=== PATIENT | male | born 1975 | race Caucasian/White ===

== ENCOUNTER 2022-02-08 03:52 | Observation (INO) | payer BC ==
[2022-02-08] MEDS ORDERED: METOPROLOL TARTRATE 5 MG/5 ML INJ IV ONE (04:29)
[2022-02-08 04:42] LABS: Absolute Lymphocytes (CBC) 3.7 K/uL (0.7-4.9); Hematocrit 41.7 % (39.6-49.0); MCV 83.9 fL (80-100); MPV 7.1 fL (7.6-11.3); RBC Red Blood Cell Count 4.97 M/uL (4.33-5.43)
[2022-02-08 05:03] LABS: Potassium 3.5 mmol/L (3.5-5.1); Troponin High Sensitivity 32.6 pg/mL (<58.9)
[2022-02-08] MEDS ORDERED: METOPROLOL TAR 50 MG TAB ONE (05:33)
[2022-02-08] MEDS ORDERED: ENOXAPARIN 100 MG/ML SYR SQ ONE (05:33)
[2022-02-08] MEDS ORDERED: ENOXAPARIN 60 MG/0.6 ML SQ ONE (05:34)
--- NOTE | 2022-02-08 07:30 | EDPHYS ---
Physician Documentation [facility] Name: Neville Mitchell Age: 47 yrs Sex: Male : 1975 Arrival Date: 02/08/2022 Time: 03:53 Bed 8 Private MD: ED Physician Marc Hardy HPI: 02/08 05:08 This 47 yrs old Male presents to ER via Ambulatory with complaints of Breathing kdr Difficulty. 05:08 The patient has shortness of breath at rest, with light activity. Onset: The kdr symptoms/episode began/occurred suddenly, yesterday. Duration: The symptoms are continuous, and are unchanged since they started. The patient's shortness of breath is aggravated by exertion, light activity, walking, is alleviated by nothing. Associated signs and symptoms: Pertinent positives:. Severity of symptoms: At their worst the symptoms were mild moderate just prior to arrival, in the emergency department the symptoms are unchanged. The patient has not experienced similar symptoms in the past. The patient has not recently seen a physician. Historical: - Allergies: 04:14 No Known Allergies; bb - Home Meds: 04:14 suboxone [Active]; phentermine oral [Active]; bb - PMHx: 04:14 pulmonary embolisim; bb - PSHx: 04:14 R ACL repair; bb - Immunization history:: Client reports having NOT received the Covid vaccine. - Social history:: Smoking status: Patient denies any tobacco usage or history of. ROS: 05:08 Constitutional: Negative for fever, chills, and weight loss, Eyes: Negative for injury, kdr pain, redness, and discharge, ENT: Negative for injury, pain, and discharge, Neck: Negative for injury, pain, and swelling, Abdomen/GI: Negative for abdominal pain, nausea, vomiting, diarrhea, and constipation, Back: Negative for injury and pain, : Negative for injury, bleeding, discharge, and swelling, MS/Extremity: Negative for injury and deformity, Skin: Negative for injury, rash, and discoloration, Neuro: Negative for headache, weakness, numbness, tingling, and seizure activity. Psych: Negative for depression, anxiety, suicide ideation, homicidal ideation, and hallucinations, Allergy/Immunology: Negative for hives, rash, and allergies, Endocrine: Negative for neck swelling, polydipsia, polyuria, polyphagia, and marked weight changes, Hematologic/Lymphatic: Negative for swollen nodes, abnormal bleeding, and unusual bruising. 05:08 Cardiovascular: Positive for chest pain, palpitations, Negative for edema, paroxysmal nocturnal dyspnea. Exam: 05:08 Constitutional: This is a well developed, well nourished patient who is awake, alert, kdr and in no acute distress. Head/Face: Normocephalic, atraumatic. Eyes: Pupils equal round and reactive to light, extra-ocular motions intact. Lids and lashes normal. Conjunctiva and sclera are non-icteric and not injected. Cornea within normal limits. Periorbital areas with no swelling, redness, or edema. Neck: Trachea midline, no thyromegaly or masses palpated, and no cervical lymphadenopathy. Supple, full range of motion without nuchal rigidity, or vertebral point tenderness. No Meningismus. Chest/axilla: Normal chest wall appearance and motion. Nontender with no deformity. No lesions are appreciated. Respiratory: Lungs have equal breath sounds bilaterally, clear to auscultation and percussion. No rales, rhonchi or wheezes noted. No increased work of breathing, no retractions or nasal flaring. Abdomen/GI: Soft, non-tender, with normal bowel sounds. No distension or tympany. No guarding or rebound. No evidence of tenderness throughout. Back: No spinal tenderness. No costovertebral tenderness. Full range of motion. Skin: Warm, dry with normal turgor. Normal color with no rashes, no lesions, and no evidence of cellulitis. MS/ Extremity: Pulses equal, no cyanosis. Neurovascular intact. Full, normal range of motion. Neuro: Awake and alert, GCS 15, oriented to person, place, time, and situation. Cranial nerves II-XII grossly intact. Motor strength 5/5 in all extremities. Sensory grossly intact. Cerebellar exam normal. Normal gait. Psych: Awake, alert, with orientation to person, place and time. Behavior, mood, and affect are within normal limits. 05:08 Cardiovascular: Rate: tachycardic, Rhythm: irregularly irregular, Pulses: no pulse deficits are appreciated, Heart sounds: normal, Edema: is not appreciated. Vital Signs: 04:00 BP 161 / 125; Pulse 138; Resp 20 S; Temp 98.5(O); Pulse Ox 94% on R/A; Weight 149.69 kg bb (R); Height 5 ft. 10 in. (177.80 cm) (R); Pain 0/10; 04:27 BP 180 / 102; Pulse 139; Resp 18 S; Pulse Ox 94% on 2 lpm NC; aa9 04:30 BP 180 / 102; Pulse 132; Resp 20; Pulse Ox 97% 2 lpm ; Pain 0/10; as6 04:35 BP 149 / 110; Pulse 121; Resp 16 S; Pulse Ox 94% on 2 lpm NC; aa9 04:44 BP 127 / 99; Pulse 115; Resp 23 S; Pulse Ox 94% on 2 lpm NC; aa9 05:12 BP 128 / 106; Pulse 107; Resp 23 S; Pulse Ox 95% on 2 lpm NC; as6 06:40 BP 126 / 91; Pulse 91; Resp 14 S; Pulse Ox 95% on 2 lpm NC; as6 07:24 BP 127 / 99; Pulse 105; Resp 20 S; Temp 98.2(O); Pulse Ox 95% on 2 lpm NC; Pain 0/10; aa5 09:55 Pulse 117; Resp 18; Pulse Ox 95% on 2 lpm NC; ss 10:10 BP 139 / 99; Pulse 125; Resp 18 S; Pulse Ox 95% on 2 lpm NC; aa5 11:21 BP 152 / 99; Pulse 96; Resp 18; Pulse Ox 94% on 2 lpm NC; ss 12:30 BP 160 / 101; Pulse 112; Resp 18 S; Pulse Ox 95% on 2 lpm NC; aa5 04:00 Body Mass Index 47.35 (149.69 kg, 177.80 cm) MDM: 05:08 Data reviewed: vital signs, nurses notes, lab test result(s), EKG, radiologic studies. kdr Counseling: I had a detailed discussion with the patient and/or guardian regarding: the historical points, exam findings, and any diagnostic results supporting the discharge/admit diagnosis, lab results, radiology results. 07:29 Patient medically screened. kdr 02/08 04:03 Order name: Basic Metabolic Panel; Complete Time: 05:07 kdr 02/08 04:03 Order name: CBC with Diff; Complete Time: 05:07 kdr 02/08 04:03 Order name: Troponin HS; Complete Time: 05:07 kdr 02/08 04:03 Order name: XRAY Chest (1 view) kdr 02/08 04:18 Order name: COVID-19 SARS RT PCR (Document "Date of Onset" if Symptomatic); Complete bb Time: 07:15 02/08 04:31 Order name: D-Dimer; Complete Time: 05:07 kdr 02/08 04:03 Order name: EKG; Complete Time: 04:04 kdr 02/08 04:03 Order name: Cardiac monitoring; Complete Time: 04:18 kdr 02/08 04:31 Order name: US Extremity Venous W Compression Darek kdr 02/08 05:07 Order name: CT Chest For PE Angio kdr 02/08 11:55 Order name: Diet Heart Healthy; Complete Time: 11:56 aa5 02/08 04:03 Order name: EKG - Nurse/Tech; Complete Time: 04:18 kdr 02/08 04:03 Order name: IV Saline Lock; Complete Time: 04:29 kdr 02/08 04:03 Order name: Labs collected and sent; Complete Time: 04:29 kdr 02/08 04:03 Order name: O2 Per Protocol; Complete Time: 04:18 kdr 02/08 04:03 Order name: O2 Sat Monitoring; Complete Time: 04:18 kdr Administered Medications: 04:27 Drug: Lopressor (metoprolol) 5 mg Route: IVP; Site: right antecubital; aa9 04:35 Drug: Lopressor (metoprolol) 5 mg Route: IVP; Site: right antecubital; aa9 04:44 Drug: Lopressor (metoprolol) 5 mg Route: IVP; Site: right antecubital; aa9 06:41 Follow up: Response: No adverse reaction as6 05:35 Drug: Lopressor (metoprolol TARTRATE) 50 mg Route: PO; aa9 06:41 Follow up: Response: No adverse reaction as6 05:35 Drug: Lovenox (enoxaparin) 1 mg/kg Route: Sub-Q; Site: right lower abdomen; aa9 06:41 Follow up: Response: No adverse reaction as6 05:35 Drug: Lovenox (enoxaparin) 1 mg/kg Route: Sub-Q; Site: right lower abdomen; aa9 Disposition Summary: 02/08/22 07:29 Hospitalization Ordered Hospitalization Status: Inpatient Admission kdr Provider: Ethan Whyte Location: Telemetry/MedSurg (Inpatient) kdr Condition: Fair kdr Problem: new kdr Symptoms: have improved kdr Bed/Room Type: Standard kdr Room Assignment: 410(02/08/22 13:03) bd Diagnosis - Unspecified atrial fibrillation - New onset kdr Forms: - Medication Reconciliation Form kdr - SBAR form kdr Signatures: Dispatcher [employer] ED[place] Noriega Kevin, MD MD kdr Ballard, Brenda, RN RN Radha Victor RN RN aa9 Roni Gordon RN as6 Corrections: (The following items were deleted from the chart) 04:17 04:14 PMHx: PE; tarsha willingham 13:03 07:29 kdr bd
--- NOTE | 2022-02-08 07:30 | ER ---
Nurse's Notes [facility] Name: Neville Mitchell Age: 47 yrs Sex: Male : 1975 Arrival Date: 02/08/2022 Time: 03:53 Bed 8 Private MD: Diagnosis: Unspecified atrial fibrillation-New onset Presentation: 02/08 04:00 Chief complaint: Patient states: he has been having difficulty breathing since bb yesterday morning states "I can't catch my breath" and c/o of chest pressure and congestion. Coronavirus screen: At this time, the client does not indicate any symptoms associated with coronavirus-19. Ebola Screen: No symptoms or risks identified at this time. Initial Sepsis Screen: Does the patient meet any 2 criteria? No. Patient's initial sepsis screen is negative. Does the patient have a suspected source of infection? No. Patient's initial sepsis screen is negative. Risk Assessment: Do you want to hurt yourself or someone else? Patient reports no desire to harm self or others. Onset of symptoms was February 07, 2022. 04:00 Method Of Arrival: Ambulatory bb 04:00 Acuity: ZHAO 2 bb Historical: - Allergies: 04:14 No Known Allergies; bb - Home Meds: 04:14 suboxone [Active]; phentermine oral [Active]; bb - PMHx: 04:14 pulmonary embolisim; bb - PSHx: 04:14 R ACL repair; bb - Immunization history:: Client reports having NOT received the Covid vaccine. - Social history:: Smoking status: Patient denies any tobacco usage or history of. Screenin:54 Abuse screen: Denies threats or abuse. Denies injuries from another. Nutritional aa9 screening: No deficits noted. Tuberculosis screening: No symptoms or risk factors identified. Fall Risk None identified. Assessment: 04:30 General: Appears uncomfortable, Behavior is calm, cooperative, anxious. Pain: Denies aa9 pain. Cardiovascular: Reports palpitations, Rhythm is atrial fibrillation with rapid ventricular response. Respiratory: Reports shortness of breath Airway is patent Respiratory effort is even, unlabored. Derm: Skin is flushed. 05:13 Reassessment: Patient appears in no apparent distress at this time. as6 06:40 Reassessment: Patient appears in no apparent distress at this time. Patient is alert, as6 oriented x 3, equal unlabored respirations, skin warm/dry/pink. 07:26 Reassessment: Patient is alert, oriented x 3, equal unlabored respirations, skin aa5 warm/dry/pink. Reassessment: Awaiting disposition. Pain: Denies pain. Cardiovascular: Rhythm is atrial fibrillation with rapid ventricular response. 08:59 Reassessment: Awaiting room assignment. ss 09:00 Reassessment: Patient and/or family updated on plan of care and expected duration. Pain aa5 level reassessed. Patient is alert, oriented x 3, equal unlabored respirations, skin warm/dry/pink. 10:25 Reassessment: Patient is alert, oriented x 3, equal unlabored respirations, skin aa5 warm/dry/pink. 10:25 Cardiovascular: Rhythm is atrial fibrillation with rapid ventricular response. aa5 10:27 Reassessment: Dr. Salomon notified of A-fib with RVR at 105-128 bpm, no further orders aa5 received. . 11:22 Reassessment: Patient appears in no apparent distress at this time. Patient and/or ss family updated on plan of care and expected duration. Pain level reassessed. Patient is alert, oriented x 3, equal unlabored respirations, skin warm/dry/pink. Awaiting room assignment. Family member remains at bedside. 11:40 Reassessment: Dr. Salomon at bedside. . aa5 13:20 Reassessment: Patient is alert, oriented x 3, equal unlabored respirations, skin aa5 warm/dry/pink. Vital Signs: 04:00 BP 161 / 125; Pulse 138; Resp 20 S; Temp 98.5(O); Pulse Ox 94% on R/A; Weight 149.69 kg bb (R); Height 5 ft. 10 in. (177.80 cm) (R); Pain 0/10; 04:27 BP 180 / 102; Pulse 139; Resp 18 S; Pulse Ox 94% on 2 lpm NC; aa9 04:30 BP 180 / 102; Pulse 132; Resp 20; Pulse Ox 97% 2 lpm ; Pain 0/10; as6 04:35 BP 149 / 110; Pulse 121; Resp 16 S; Pulse Ox 94% on 2 lpm NC; aa9 04:44 BP 127 / 99; Pulse 115; Resp 23 S; Pulse Ox 94% on 2 lpm NC; aa9 05:12 BP 128 / 106; Pulse 107; Resp 23 S; Pulse Ox 95% on 2 lpm NC; as6 06:40 BP 126 / 91; Pulse 91; Resp 14 S; Pulse Ox 95% on 2 lpm NC; as6 07:24 BP 127 / 99; Pulse 105; Resp 20 S; Temp 98.2(O); Pulse Ox 95% on 2 lpm NC; Pain 0/10; aa5 09:55 Pulse 117; Resp 18; Pulse Ox 95% on 2 lpm NC; ss 10:10 BP 139 / 99; Pulse 125; Resp 18 S; Pulse Ox 95% on 2 lpm NC; aa5 11:21 BP 152 / 99; Pulse 96; Resp 18; Pulse Ox 94% on 2 lpm NC; ss 12:30 BP 160 / 101; Pulse 112; Resp 18 S; Pulse Ox 95% on 2 lpm NC; aa5 04:00 Body Mass Index 47.35 (149.69 kg, 177.80 cm) bb ED Course: 03:53 Patient arrived in ED. bp1 03:56 Roni Gordon, GERARDO is Primary Nurse. as6 04:03 Marc Hardy MD is Attending Physician. kdr 04:14 Triage completed. bb 04:14 Arm band placed on Patient placed in an exam room, on a stretcher, on panel monitor, bb on pulse oximetry. EKG completed in triage. Results shown to MD. 04:17 XRAY Chest (1 view) In Process Unspecified. EDMS 04:29 COVID-19 SARS RT PCR (Document "Date of Onset" if Symptomatic) Sent. as6 04:29 Basic Metabolic Panel Sent. as6 04:29 CBC with Diff Sent. as6 04:30 Troponin HS Sent. as6 04:54 Patient has correct armband on for positive identification. Placed in gown. Bed in low aa9 position. Call light in reach. Side rails up X2. Adult w/ patient. Client placed on continuous cardiac and pulse oximetry monitoring. NIBP monitoring applied. 04:57 Notified ED physician of a critical lab result(s). D-Dimer 842. as6 05:07 US Extremity Venous W Compression Darek In Process Unspecified. EDMS 05:37 CT Chest For PE Angio In Process Unspecified. EDMS 07:28 Ethan Whyte MD is Hospitalizing Provider. kdr 13:20 No provider procedures requiring assistance completed. Patient admitted, IV remains in aa5 place. Administered Medications: 04:27 Drug: Lopressor (metoprolol) 5 mg Route: IVP; Site: right antecubital; aa9 04:35 Drug: Lopressor (metoprolol) 5 mg Route: IVP; Site: right antecubital; aa9 04:44 Drug: Lopressor (metoprolol) 5 mg Route: IVP; Site: right antecubital; aa9 06:41 Follow up: Response: No adverse reaction as6 05:35 Drug: Lopressor (metoprolol TARTRATE) 50 mg Route: PO; aa9 06:41 Follow up: Response: No adverse reaction as6 05:35 Drug: Lovenox (enoxaparin) 1 mg/kg Route: Sub-Q; Site: right lower abdomen; aa9 06:41 Follow up: Response: No adverse reaction as6 05:35 Drug: Lovenox (enoxaparin) 1 mg/kg Route: Sub-Q; Site: right lower abdomen; aa9 Medication: 13:20 VIS not applicable for this client. aa5 Outcome: 07:29 Decision to Hospitalize by Provider. kdr 13:20 Admitted to Tele accompanied by nurse, via wheelchair, with chart, Report called to aa5 GERARDO Mann 13:20 Condition: stable 13:20 Instructed on the need for admit, Demonstrated understanding of instructions. 13:57 Patient left the ED. ss Signatures: Dispatcher [employer] EDME Marc Hardy MD MD kdr Talia Rivas RN RN bb Angy Swift RN RN aa5 Nadine Stanley RN RN ss Diamante Izaguirre Ashby, RN RN as6 Radha Sanchez, GERARDO RN aa9 Corrections: (The following items were deleted from the chart) 04:17 04:14 PMHx: PE; tarsha willingham
[2022-02-08] MEDS ORDERED: APIXABAN 5 MG TABLET PO SCH (09:00)
--- NOTE | 2022-02-08 10:47 | RAD REPORT ---
EXAM DESCRIPTION: US - Extrem Venous W Compress Darek - 02/08/2022 5:45 am CLINICAL HISTORY: Palpitations . COMPARISON: None. TECHNIQUE: Grayscale, color Doppler, duplex Doppler, spectral Doppler images and analysis with compr ession and augmentation of right and left lower extremity veins. FINDINGS: Right and Left common femoral, greater saphenous, femoral, deep (profunda) femoral, poplit eal, posterior tibial veins unremarkable without evidence of clot. IMPRESSION: No sonographic evidence of right or left lower extremity DVT. Electronically signed by: Robbi George MD 02/08/2022 5:38 AM CDT Due to temporary technical issues with the PACS/Fluency reporting system, reports are being signed by the in house radiologist without review as a courtesy to ensure prompt reporting. The interpreting r adiologist is fully responsible for the content of the report.
--- NOTE | 2022-02-08 10:52 | RAD REPORT ---
EXAM DESCRIPTION: RAD - Chest Single View - 02/08/2022 4:15 am CLINICAL HISTORY: 47 years Male, SOB COMPARISON: None. FINDINGS: Cardiomediastinal silhouette is enlarged with diffuse bilateral parenchymal opacities. No pneumothorax or pleural effusion. Osseous structures are unremarkable. IMPRESSION: Findings are suspicious for edema versus pneumonia. Electronically signed by: Fred Roa MD 02/08/2022 4:52 AM CDT Due to temporary technical issues with the PACS/Fluency reporting system, reports are being signed by the in house radiologist without review as a courtesy to ensure prompt reporting. The interpreting r adiologist is fully responsible for the content of the report.
--- NOTE | 2022-02-08 12:19 | P.HP ---
Certification for Inpatient Patient admitted to: Inpatient With expected LOS: >2 Midnights Practitioner: I am a practitioner with admitting privileges, knowledge of patient current condition, hospital course, and medical plan of care. Services: Services provided to patient in accordance with Admission requirements found in Title 42 Section 412.3 of the Code of Federal Regulations Patient History Date of Service: 02/08/22 Reason for admission: Atrial fibrillation History of Present Illness: 47-year-old morbidly obese gentleman with a past medical history of hypertension, remote history of lower extremity DVT presented to the emergency department with a complaint of palpitation shortness of breath of 1 week duration, symptoms became worse last night, he stated he could not catch his breath. He therefore presented to the emergency department where patient noted to be in rapid atrial fibrillation. Patient given oral metoprolol, followed by IV metoprolol with some response in the heart rate. His heart rate was in the 115-130s during my examination in the ED. CTA thorax is negative for pulmonary embolism. Venous Doppler of the lower extremities negative for DVT. Patient with no known cardiac history. He is hospitalized for further management. Allergies No Known Allergies Allergy (Unverified 02/08/22 08:51) Home Medications: Buprenorphine HCl/Naloxone HCl [Suboxone 2 mg-0.5 mg Sl Film] 1 each SL DAILY 02/08/22 Phentermine HCl [Adipex-P] 37.5 mg PO DAILY 02/08/22 - Past Medical/Surgical History Diabetic: No -: Hypertension -: History of lower extremity DVT - Family History Father -: Cancer (Lung cancer) - Social History Smoking Status: Never smoker Alcohol use: Yes CD- Drugs: No Place of Residence: Home Review of Systems Other: Patient denied any chest pain, or cough or abdominal pain. He denied any fever. Except as documented, all other systems reviewed and negative. Physical Examination - Physical Exam General: Alert, In no apparent distress, Oriented x3 HEENT: Mucous membr. moist/pink Neck: Supple, JVD not distended Respiratory: Clear to auscultation bilaterally, Normal air movement Cardiovascular: No edema, Normal S1 S2, Irregular heart rate/rhythm Capillary refill: <2 Seconds Gastrointestinal: Normal bowel sounds, Soft and benign, Non-distended Musculoskeletal: No swelling Integumentary: No rashes, No cyanosis Neurological: Normal speech, Normal strength at 5/5 x4 extr, Cranial nerves 3-12 intact Lymphatics: No axilla or inguinal lymphadenopathy - Studies Laboratory Data (last 24 hrs) 02/08/22 04:20: WBC 13.3 H, Hgb 14.2, Hct 41.7, Plt Count 303 02/08/22 04:20: Sodium 137, Potassium 3.5, BUN 21 H, Creatinine 0.83, Glucose 114 H Assessment and Plan - Problems (Diagnosis) (1) Rapid atrial fibrillation Current Visit: Yes Status: Acute (2) Hypertension Current Visit: Yes Status: Acute - Plan Patient to the medical floor. Start Eliquis Obtain echocardiogram Cardiology consult. Case discussed with Dr. Charles who recommend sotalol Trend troponin Monitor and optimize electrolytes. IV metoprolol as needed for rapid heart rates. - Advance Directives Does patient have a Living Will: No Does patient have a Durable POA for Healthcare: No
--- NOTE | 2022-02-08 12:53 | EKG ---
Test Date: 2022-02-08 Test Time: 04:01:52 [employer] Developer: SUMAN MEASUREMENT RESULTS: Intervals: Rate: 138 AR: QRSD: 98 QT: 294 QTc: 445 [place]: P: AR: QRS: 51 T: 39 INTERPRETIVE STATEMENTS: Atrial fibrillation with rapid ventricular response Abnormal ECG Compared to ECG 10/22/2008 20:08:30 Sinus tachycardia no longer present Electronically Signed On 02-08-22 12:52:38 CDT by Yasmani Charles
[2022-02-08] MEDS ORDERED: ONDANSETRON 4 MG/2 ML VIAL IV PRN (13:00)
[2022-02-08] MEDS ORDERED: METOPROLOL TAR 50 MG TAB PO SCH (13:00)
[2022-02-08] MEDS ORDERED: ALBUTEROL 2.5 MG/3 ML NEB SOL NEB PRN ×2 (13:00→14:00)
[2022-02-08] MEDS ORDERED: METOPROLOL TARTRATE 5 MG/5 ML INJ IV PRN (13:00)
[2022-02-08] MEDS ORDERED: ACETAMINOPHEN 500 MG TAB PO PRN (13:00)
[2022-02-08 14:12] VITALS: BMI 47.3
[2022-02-08] MEDS: SOTALOL HCL 80 MG TAB PO SCH (18:03)
[2022-02-08] MEDS ORDERED: ALPRAZOLAM 0.5 MG TABLET PO ONE (21:48)
[2022-02-09 03:53] LABS: Absolute Lymphocytes (CBC) 3.8 K/uL (0.7-4.9); Hematocrit 42.1 % (39.6-49.0); MCV 83.5 fL (80-100); MPV 7.5 fL (7.6-11.3); RBC Red Blood Cell Count 5.04 M/uL (4.33-5.43)
[2022-02-09 04:41] LABS: Magnesium 2.2 mg/dL (1.8-2.4); Phosphorus 3.6 mg/dL (2.5-4.9); Potassium 3.8 mmol/L (3.5-5.1)
[2022-02-09] MEDS: SOTALOL HCL 80 MG TAB PO SCH ×2 (05:21→17:42)
[2022-02-09] MEDS ORDERED: BUPRENORPHINE HCL SL SCH (09:00)
[2022-02-09] MEDS ORDERED: POTASSIUM CL SA 10 MEQ TAB PO ONE (09:00)
[2022-02-09] MEDS ORDERED: HOME MED 1 EA UNK (Phentermine Hcl [Adipex-P] 37.5 MG Tablet) PO SCH (09:00)
[2022-02-09] MEDS ORDERED: NALOXONE HCL SL SCH (09:00)
--- NOTE | 2022-02-09 11:50 | CON ---
Date of Consultation: 02/09/2022 Reason For Consultation: Atrial fibrillation. History Of Present Illness: Mr. Shepherd is a 47-year-old male without any significant cardiac histo ry, although he has had pulmonary embolus in the past. Apparently, he has had what sounds like atria l fibrillation intermittently over 2 years, but at this time he came in with rapid ventricular respon se, shortness of breath, some chest tightness. No nausea, vomiting, diaphoresis, PND, orthopnea, ped al edema, or syncope. MS has been ruled out. His venous Doppler was negative. EKG showed atrial fi brillation. Chest x-ray showed edema. D-dimer was 843. His white count was 13,000. He is still trevizo ving some palpitations, but right now . Echocardiogram is pending. He has already receive d 1 dose of sotalol last night and 1 dose of sotalol this morning. He is still in atrial fibrillatio n at a rate of about 100. Past Medical History: As stated above. Allergies: NONE. Review of Systems: Negative. Social History: Positive for use of energy drinks and caffeine with rare alcohol. Family History: Noncontributory. Medications: At home are none. Physical Examination: Vital Signs: Stable. He was afebrile, atrial fibrillation at 100. General: No acute distress. HEENT: Negative. Neck: Supple with no bruit. Chest: Clear. Cardiac: Revealed atrial fibrillation. Abdomen: Benign. Extremities: Revealed no clubbing, cyanosis, or edema. Diagnostic Data: As stated earlier. Impression And Plan: Atrial fibrillation with rapid ventricular response causing elevated D-dimer, m ild edema, and shortness of breath. The patient needs to be on sotalol 80 b.i.d. He needs to be on Eliquis 5 mg b.i.d. Echocardiogram is pending. He can go home after the third dose of sotalol. I w ill see him in the office in the next week and plan a cardioversion electrically if he continues to b e in atrial fibrillation. He will also eventually need another echocardiogram and a stress test most likely MPI. ZITA/FAUSTINA Voice ID: [id number] Report ID: [id number]
[2022-02-09] MEDS ORDERED: SOTALOL HCL 80 MG TAB PO ONE (13:00)
--- NOTE | 2022-02-09 13:49 | P.DS ---
Admission Date: 02/08/22 Discharge Date: 02/09/22 Disposition: ROUTINE DISCHARGE Discharge Condition: FAIR Reason for Admission: Atrial fibrillation - Problems (1) Rapid atrial fibrillation Current Visit: Yes Status: Acute (2) Hypertension Current Visit: Yes Status: Acute Brief History of Present Illness: 47-year-old morbidly obese gentleman with a past medical history of hypertension, remote history of lower extremity DVT presented to the emergency department with a complaint of palpitation shortness of breath of 1 week duration, symptoms became worse last night, he stated he could not catch his breath. He therefore presented to the emergency department where patient noted to be in rapid atrial fibrillation. Patient given oral metoprolol, followed by IV metoprolol with some response in the heart rate. His heart rate was in the 115-130s during my examination in the ED. CTA thorax is negative for pulmonary embolism. Venous Doppler of the lower extremities negative for DVT. Patient with no known cardiac history. He was hospitalized for further management. Hospital Course: Patient placed under observation on the medical floor. Seen by cardiology-Dr. Charles who recommended sotalol with a goal of cardioversion. Patient was a started on Eliquis. He remained in atrial fibrillation. Echocardiogram done and the result is pending. Patient vitals were stable during the hospital stay. He was initially hypertensive but his blood pressure improved. Cardiology recommended discharge and follow-up in the office for arrangement for electric cardioversion. Vital Signs/Physical Exam: Temp Pulse Resp BP Pulse Ox 97.6 F 66 18 144/75 H 93 02/09/22 08:00 02/09/22 08:00 02/09/22 08:00 02/09/22 08:00 02/09/22 08:00 General: Alert, In no apparent distress, Oriented x3 HEENT: Mucous membr. moist/pink Neck: Supple, JVD not distended Respiratory: Clear to auscultation bilaterally, Normal air movement Cardiovascular: No edema, Normal S1 S2, No murmurs, Irregular heart rate/rhythm Capillary refill: <2 Seconds Gastrointestinal: Normal bowel sounds, Soft and benign, Non-distended, No tenderness Musculoskeletal: No swelling Integumentary: No rashes, No cyanosis Neurological: Normal strength at 5/5 x4 extr Laboratory Data at Discharge: WBC 13.7 K/uL (4.3-10.9) H 02/09/22 03:00 Hgb 14.5 g/dL (13.6-17.9) 02/09/22 03:00 Hct 42.1 % (39.6-49.0) 02/09/22 03:00 Plt Count 303 K/uL (152-406) 02/09/22 03:00 Sodium 137 mmol/L (136-145) 02/09/22 03:00 Potassium 3.8 mmol/L (3.5-5.1) 02/09/22 03:00 BUN 16 mg/dL (7-18) 02/09/22 03:00 Creatinine 0.74 mg/dL (0.55-1.3) 02/09/22 03:00 Glucose 98 mg/dL (74-106) 02/09/22 03:00 Phosphorus 3.6 mg/dL (2.5-4.9) 02/09/22 03:00 Magnesium 2.2 mg/dL (1.8-2.4) 02/09/22 03:00 Triglycerides 151 mg/dL (<150) H 02/09/22 03:00 Cholesterol 166 mg/dL (<200) 02/09/22 03:00 HDL Cholesterol 28 mg/dL (40-60) L 02/09/22 03:00 Cholesterol/HDL Ratio 5.93 02/09/22 03:00 Home Medications: Buprenorphine HCl/Naloxone HCl [Suboxone 2 mg-0.5 mg Sl Film] 1 each SL DAILY 02/08/22 Phentermine HCl [Adipex-P] 37.5 mg PO DAILY 02/08/22 Apixaban [Eliquis] 5 mg PO BID #60 tablet 02/09/22 Sotalol HCl [Betapace*] 80 mg PO BID 6AM 6PM #60 tab 02/09/22 New Medications: Sotalol HCl [Betapace*] 80 mg PO BID 6AM 6PM #60 tab Apixaban [Eliquis] 5 mg PO BID #60 tablet Diet: AHA Activity: Ad aba Followup: Yasmani Charles MD [ACTIVE - CAN ADMIT] - (Next week) NONE,NONE [Primary Care Provider] -
--- NOTE | 2022-02-09 13:52 | ECHO ---
HEIGHT: 5 ft 10 in WEIGHT: 330 lb 0 oz DATE OF STUDY: 02/09/[address]: iman salguero 2-DIMENSIONAL: YES M.MODE: YES DOPPLER: YES COLOR FLOW: YES TDS: NO PORTABLE: YES DEFINITY: NO BUBBLE STUDY: NO DIAGNOSIS: RAPID ATRIAL FIBRILLATION/ CONGESTIVE HEART FAILURE CARDIAC HISTORY: CATHERIZATION: SURGERY: PROSTHETIC VALVE: PACEMAKER: MEASUREMENTS (cm) DIASTOLIC (NORMALS) SYSTOLIC (NORMALS) IVSd 1.1 (0.6-1.2) LA Diam 4.6 (1.9-4.0) LVEF 40-45% LVIDd 6.0 (3.5-5.7) LVIDs 4.8 (2.0-3.5) %FS 19% LVPWd 1.0 (0.6-1.2) Ao Diam 3.0 (2.0-3.7) 2 DIMENSIONAL ASSESSMENT: RIGHT ATRIUM: NORMAL LEFT ATRIUM: ENLARGED RIGHT VENTRICLE: NORMAL LEFT VENTRICLE: DEPRESSED FUNCTION TRICUSPID VALVE: NORMAL MITRAL VALVE: MODERATE MITRAL REGURGITATION PULMONIC VALVE: NOT SEE WELL AORTIC VALVE: NORMAL PERICARDIAL EFFUSION: NONE AORTIC ROOT: NORMAL LEFT VENTRICULAR WALL MOTION: MILD GLOBAL HYPOKINESIS. DOPPLER/COLOR FLOW: SEE BELOW. COMMENTS: MILDLY DEPRESSED LEFT VENTRICULAR EJECTION FRACTION 40-45% WITH MILDLY GLOBAL HYPOKINESIS. MODERATE MITRAL REGURGITATION. LEFT ATRIAL ENLARGEMENT. ATRIAL FIBRILLATION. TECHNOLOGIST: JOSIE JIMENES
[2022-02-09 14:07] LABS: Urine Appearance TURBID (Clear); Urine Blood Negative (Negative); Urine Color Yellow (Yellow); Urine Glucose Negative (Negative); Urine Protein 2+ (Negative); Urine Specific Gravity 1.025 (1.005-1.030)
[2022-02-09 14:11] LABS: Urine Microscopic Reflex ORDER UMIC
[2022-02-09 14:13] LABS: Urine Bacteria NONE SEEN /HPF (NONE SEEN); Urine Bilirubin 1+ (Negative); Urine Mucus 1+ /HPF (NONE SEEN); Urine RBC <5 /HPF (NONE SEEN)
[2022-02-09 15:47] VITALS: O2SAT 93
[2022-02-09 16:09] VITALS: BP 118/87; TEMP 95.4
--- NOTE | 2022-02-09 17:09 | RAD REPORT ---
EXAM DESCRIPTION: CT - Chest For Pe Angio - 02/08/2022 6:33 am TECHNIQUE: Computerized tomographic angiography of the chest was performed after the IV injection of iodinated nonionic contrast including image processing. The image data was postprocessed using 2-d imensional multiplanar reformatted (MPR) and 3-dimensional (MIP and/or volume rendered) techniques. A utomated exposure control, adjustment of mA and/or kV according to patient size, or iterative reconst ruction dose optimization techniques were utilized. CLINICAL HISTORY: New onset A. fib COMPARISON: None. FINDINGS: Heart and pericardium: There is a trace amount of pericardial fluid inferiorly. The heart is mildly prominent. Thoracic aorta: No aneurysm or dissection. Pulmonary vasculature: Normal. Lymph nodes: 12 mm short axis right paratracheal lymph node is mildly prominent 13 mm short axis no damaris are seen in the left superior mediastinum. Prominent 17 mm short axis subcarinal lymph node. Prom inent 14 mm right hilar lymph node. Lungs: There is diffuse bilateral mild smooth septal thickening and predominantly central bilateral groundglass opacities, compatible with interstitial and airspace edema. Correlate clinically to excl ude superimposed infectious infiltrates. Pleural space: There are bilateral [id number] layering low-density pleural effusions. No pne umothorax. Musculoskeletal structures: Multilevel thoracic spine degenerative disc changes. Upper abdominal structures: No significant abnormality. IMPRESSION: No evidence of pulmonary emboli. Findings are compatible with pulmonary edema and pleural effusions. Correlate clinically to exclude s uperimposed groundglass infectious infiltrates. There is nonspecific mediastinal and hilar adenopathy. Electronically signed by: Vanessa Petit MD 02/08/2022 6:19 AM CDT Due to temporary technical issues with the PACS/Fluency reporting system, reports are being signed by the in house radiologist without review as a courtesy to ensure prompt reporting. The interpreting r adiologist is fully responsible for the content of the report.
== END 2022-02-09 18:10 | disposition home or self-care (01) ==
LOC: ER 03:52 → ERHOLD 08:40 → 4TH 13:23
PROVIDERS: ADMIT Internal Medicine; ATTEND Internal Medicine
DX: I48.91 Unspecified atrial fibrillation (principal); I10 Essential (primary) hypertension; E66.01 Morbid (severe) obesity due to excess calories; Z68.42 Body mass index [BMI] 45.0-49.9, adult; Z86.718 Personal history of other venous thrombosis and embolism; Z86.711 Personal history of pulmonary embolism; Z28.310 Unvaccinated for COVID-19; Z20.822 Contact with and (suspected) exposure to COVID-19; Z80.1 Family history of malignant neoplasm of trachea, bronchus and lung
CPT/HCPCS: 93005; 93306; 85025 ×2; 80048 ×2; 36415; 83735; 84100; 80061; 85379; 84484 ×3; 71275; 71045; 93970; 94760 ×2; 96372; 96374; 99285; U0003; Q9967; J1650 ×2; G0378 ×3; 81003; 81015

== ENCOUNTER 2022-02-10 03:13 | Emergency (ER) | payer BC ==
[2022-02-10] MEDS ORDERED: LIDOCAINE VISCOUS 2% SOLN 15 ML UDC ONE (03:28)
--- NOTE | 2022-02-10 03:35 | ER ---
Nurse's Notes [facility] Name: Neville Mitchell Age: 47 yrs Sex: Male : 1975 Arrival Date: 02/10/2022 Time: 03:14 Bed 17 Private MD: Diagnosis: Foreign body insect in left ear canal Presentation: 02/10 03:32 Chief complaint: Patient states: "I was sitting up watching TV and a bug flew in my vc1 ear.". Coronavirus screen: Vaccine status: Patient reports being unvaccinated. At this time, the client does not indicate any symptoms associated with coronavirus-19. Ebola Screen: No symptoms or risks identified at this time. Initial Sepsis Screen: Does the patient meet any 2 criteria? No. Patient's initial sepsis screen is negative. Does the patient have a suspected source of infection? No. Patient's initial sepsis screen is negative. Risk Assessment: Do you want to hurt yourself or someone else? Patient reports no desire to harm self or others. Onset of symptoms was February 10, 2022 at 03:00. 03:32 Method Of Arrival: Ambulatory vc1 03:32 Acuity: ZHAO 5 vc1 Triage Assessment: 03:34 General: Appears in no apparent distress. uncomfortable, Behavior is appropriate for 1 age. Pain: Complains of pain in left ear Pain does not radiate. Noted to be grimacing. EENT: Ear canal w/ foreign body noted from left ear Reports bug in ear. Neuro: Level of Consciousness is awake, alert, obeys commands, Oriented to person, place, time, situation, Appropriate for age. Cardiovascular: Capillary refill Patient's skin is warm and dry. Respiratory: Airway is patent Respiratory effort is even, unlabored, Respiratory pattern is regular, symmetrical. GI: No deficits noted. : No deficits noted. Derm: No deficits noted. Musculoskeletal: No deficits noted. Historical: - Allergies: 03:34 No Known Allergies; vc1 - Home Meds: 03:34 Suboxone [Active]; sotalol 80 mg Oral tab [Active]; vc1 - PMHx: 03:34 pulmonary embolisim; Atrial fibrillation; vc1 - PSHx: 03:34 R ACL repair; vc1 - Immunization history:: Adult Immunizations up to date, Client reports having NOT received the Covid vaccine. - Social history:: Smoking status: Patient denies any tobacco usage or history of. Screenin:36 Abuse screen: Denies threats or abuse. Nutritional screening: No deficits noted. vc1 Tuberculosis screening: No symptoms or risk factors identified. Fall Risk None identified. Vital Signs: 03:32 BP 126 / 96; Pulse 67; Resp 17; Temp 97.8(O); Pulse Ox 97% ; Weight 149.69 kg; Height 5 vc1 ft. 10 in. (177.80 cm); 03:32 Body Mass Index 47.35 (149.69 kg, 177.80 cm) vc1 ED Course: 03:14 Patient arrived in ED. bp1 03:20 Devin Blank MD is Attending Physician. sp3 03:33 Triage completed. vc1 03:34 Theresa Chong MD is Referral Physician. sp3 03:36 Arm band placed on right wrist. vc1 03:36 No provider procedures requiring assistance completed. Patient did not have IV access vc1 during this emergency room visit. 03:37 Patient has correct armband on for positive identification. Pulse ox on. NIBP on. vc1 Administered Medications: 03:42 Drug: Viscous Lidocaine Liquid (4 %) 5 ml Route: Mucous Membrane; vc1 Medication: 03:37 VIS not applicable for this client. vc1 Outcome: 03:34 Discharge ordered by . sp3 03:37 Discharged to home ambulatory. vc1 03:37 Condition: good 03:37 Discharge instructions given to patient, Instructed on discharge instructions, follow up and referral plans. medication usage, Demonstrated understanding of instructions, follow-up care, medications, Prescriptions given X 1. 03:42 Patient left the ED. vc1 Signatures: Diamante Izaguirre [facility] Devin Blank MD MD sp3 Shagufta Brito, RN RN vc1
--- NOTE | 2022-02-10 03:35 | EDPHYS ---
Physician Documentation [facility] Name: Neivlle Mitchell Age: 47 yrs Sex: Male : 1975 Arrival Date: 02/10/2022 Time: 03:14 Bed 17 Private MD: ED Physician Devin Blank HPI: 02/10 03:30 This 47 yrs old Male presents to ER via Unassigned with complaints of Foreign Body In sp3 Ear, Bug in ear. 03:30 47-year-old male with no significant past medical history presents to the ED with sp3 foreign body insect in his left ear that entered just prior to arrival. Patient states he tried getting it out with tweezers but was unsuccessful and after that he dropped it with his hand and came straight to the emergency department. No other symptoms at this time.. Historical: - Allergies: 03:34 No Known Allergies; vc1 - Home Meds: 03:34 Suboxone [Active]; sotalol 80 mg Oral tab [Active]; vc1 - PMHx: 03:34 pulmonary embolisim; Atrial fibrillation; vc1 - PSHx: 03:34 R ACL repair; vc1 - Immunization history:: Adult Immunizations up to date, Client reports having NOT received the Covid vaccine. - Social history:: Smoking status: Patient denies any tobacco usage or history of. ROS: 03:31 Constitutional: Negative for fever, chills, and weight loss, Eyes: Negative for injury, sp3 pain, redness, and discharge, Neck: Negative for injury, pain, and swelling, Cardiovascular: Negative for chest pain, palpitations, and edema, Respiratory: Negative for shortness of breath, cough, wheezing, and pleuritic chest pain, Abdomen/GI: Negative for abdominal pain, nausea, vomiting, diarrhea, and constipation, Back: Negative for injury and pain, MS/Extremity: Negative for injury and deformity, Skin: Negative for injury, rash, and discoloration, Neuro: Negative for headache, weakness, numbness, tingling, and seizure, Psych: Negative for depression, anxiety, suicide ideation, homicidal ideation, and hallucinations, Allergy/Immunology: Negative for hives, rash, and allergies. 03:31 All other systems are negative. Exam: 03:31 Constitutional: This is a well developed, well nourished patient who is awake, alert, sp3 and in no acute distress. Head/Face: Normocephalic, atraumatic. Eyes: Pupils equal round and reactive to light, extra-ocular motions intact. Lids and lashes normal. Conjunctiva and sclera are non-icteric and not injected. Cornea within normal limits. Periorbital areas with no swelling, redness, or edema. Neck: Trachea midline, no thyromegaly or masses palpated, and no cervical lymphadenopathy. Supple, full range of motion without nuchal rigidity, or vertebral point tenderness. No Meningismus. Chest/axilla: Normal chest wall appearance and motion. Nontender with no deformity. No lesions are appreciated. Cardiovascular: Regular rate and rhythm with a normal S1 and S2. No gallops, murmurs, or rubs. Normal PMI, no JVD. No pulse deficits. Neuro: Awake and alert, GCS 15, oriented to person, place, time, and situation. Cranial nerves II-XII grossly intact. Motor strength 5/5 in all extremities. Sensory grossly intact. Cerebellar exam normal. Normal gait. 03:31 ENT: Post removal ear canal demonstrates erythema on the proximal half. Tympanic membrane is normal. No rupture is occurred.. Vital Signs: 03:32 BP 126 / 96; Pulse 67; Resp 17; Temp 97.8(O); Pulse Ox 97% ; Weight 149.69 kg; Height 5 vc1 ft. 10 in. (177.80 cm); 03:32 Body Mass Index 47.35 (149.69 kg, 177.80 cm) vc1 MDM: 03:26 Patient medically screened. sp3 03:32 Data reviewed: vital signs, nurses notes. ED course: Viscous lidocaine was applied to sp3 left ear canal at which point insect exited no further intervention required. Patient will be discharged with topical antibiotic and follow-up with ENT as needed.. Administered Medications: 03:42 Drug: Viscous Lidocaine Liquid (4 %) 5 ml Route: Mucous Membrane; vc1 Disposition Summary: 02/10/22 03:34 Discharge Ordered Location: Home sp3 Condition: Stable sp3 Diagnosis - Foreign body insect in left ear canal sp3 Followup: sp3 - With: Theresa Chong MD - When: Upon discharge from the Emergency Department - Reason: Wound Recheck Discharge Instructions: - Discharge Summary Sheet sp3 - Ear Foreign Body sp3 Forms: - Medication Reconciliation Form sp3 - Thank You Letter sp3 - Antibiotic Education sp3 - Prescription Opioid Use sp3 Prescriptions: - Ciprodex 0.3-0.1 % Otic Drops, Suspension - instill 4 drops by OTIC route every 12 hours for 7 days , for ears ONLY; 1 sp3 Container; Refills: 0, Product Selection Permitted Signatures: Devin Blank MD MD sp3 Shagufta Brito RN RN vc1
[2022-02-10 04:00] VITALS: BP 126/96; TEMP 97.8; O2SAT 97
--- NOTE | 2022-02-10 09:55 | EKG ---
Test Date: 2022-02-08 Test Time: 07:29:45 Communication Lecturer: MILA MEASUREMENT RESULTS: Intervals: Rate: 100 CT: QRSD: 96 QT: 390 QTc: 503 Pelsor: P: CT: QRS: 66 T: 80 INTERPRETIVE STATEMENTS: Atrial fibrillation Prolonged QT Abnormal ECG Compared to ECG 02/08/2022 04:01:52 Prolonged QT interval now present Electronically Signed On 02-10-22 09:49:06 CDT by Yasmani Charles
== END 2022-02-10 03:42 | disposition home or self-care (01) ==
LOC: ER 03:13
DX: T16.2XXA Foreign body in left ear, initial encounter (principal); I48.91 Unspecified atrial fibrillation
CPT/HCPCS: 93005; 99283

== ENCOUNTER 2022-02-11 23:00 | Inpatient (IN) | payer BC ==
[2022-02-11] MEDS ORDERED: NA CHLORIDE 0.9% 1,000 ML ONE (23:24)
[2022-02-11 23:25] LABS: Absolute Lymphocytes (CBC) 3.9 K/uL (0.7-4.9); Hematocrit 47.1 % (39.6-49.0); Lymphocytes % 28.2 % (15.3-44.8); MCV 85.4 fL (80-100); MPV 7.4 fL (7.6-11.3); RBC Red Blood Cell Count 5.51 M/uL (4.33-5.43)
[2022-02-11 23:29] LABS: Protime INR 1.21
[2022-02-11 23:50] LABS: Albumin 3.7 g/dL (3.4-5.0); Bilirubin Direct 0.2 mg/dL (0-0.2); Bilirubin Total 0.5 mg/dL (0.2-1.0); Magnesium 2.2 mg/dL (1.8-2.4); Potassium 4.1 mmol/L (3.5-5.1); Protein, Total 7.7 g/dL (6.4-8.2); Troponin High Sensitivity 21.2 pg/mL (<58.9)
[2022-02-11 23:55] LABS: Thyroid Stimulating Hormone 4.23 uIU/mL (0.360-3.740)
--- NOTE | 2022-02-11 23:58 | ER ---
Nurse's Notes [facility] Name: Neville Mitchell Age: 47 yrs Sex: Male : 1975 Arrival Date: 02/11/2022 Time: 23:01 Bed 7 Private MD: Diagnosis: Chronic atrial fibrillation;Unspecified combined systolic (congestive) and diastolic (congestive) heart failure;Essential (primary) hypertension;Obesity, unspecified Presentation: 02/11 23:13 Chief complaint: Patient states: he has felt like his heart has been beating fast all sm5 day and hard to breathe. just discharged from hospital with dx of a fib. started sotalol 2 days ago, eliquis today. Coronavirus screen: Vaccine status: Patient reports being unvaccinated. Ebola Screen: No symptoms or risks identified at this time. Initial Sepsis Screen: Does the patient meet any 2 criteria? HR > 90 bpm. No. Patient's initial sepsis screen is negative. Does the patient have a suspected source of infection? No. Patient's initial sepsis screen is negative. Risk Assessment: Do you want to hurt yourself or someone else? Patient reports no desire to harm self or others. Onset of symptoms was February 11, 2022. 23:13 Method Of Arrival: Ambulatory [facility] 23:13 Acuity: ZHAO 3 5 Triage Assessment: 23:15 General: Appears uncomfortable, Behavior is cooperative. Pain: Denies pain. Neuro: 5 Level of Consciousness is awake, alert, obeys commands, Oriented to person, place, time, situation. Cardiovascular: Capillary refill < 3 seconds Rhythm is atrial fibrillation. Respiratory: Reports shortness of breath Airway is patent Trachea midline Respiratory effort is even, unlabored. Derm: Skin is diaphoretic. Historical: - Allergies: 23:17 No Known Allergies; sm5 - Home Meds: 23:15 sotalol 80 mg Oral tab [Active]; Suboxone [Active]; phentermine Oral [Active]; Eliquis sm5 oral [Active]; - PMHx: 23:15 Atrial fibrillation; pulmonary embolisim; sm5 - PSHx: 23:15 R ACL repair; sm5 - Immunization history:: Client reports having NOT received the Covid vaccine. - Social history:: Smoking status: Patient denies any tobacco usage or history of. Patient uses alcohol, only on a social basis. - Family history:: not pertinent. Screenin:16 Abuse screen: Denies threats or abuse. Denies injuries from another. Nutritional [facility] screening: No deficits noted. Tuberculosis screening: No symptoms or risk factors identified. Fall Risk None identified. Assessment: 23:00 General: Appears distressed, uncomfortable, Behavior is cooperative, anxious. Pain: jb4 Denies pain. Neuro: Level of Consciousness is awake, alert, obeys commands, Oriented to person, place, time, situation. Cardiovascular: Skin warm and diaphoretic. . Respiratory: Airway is patent Respiratory effort is even, labored, Respiratory pattern is regular, tachypnea. Derm: Skin is intact, Skin is diaphoretic, Skin is normal, Skin temperature is warm. Musculoskeletal: Circulation, motion, and sensation intact. Range of motion: intact in all extremities. 02/12 00:00 Reassessment: Patient appears in no apparent distress at this time. Patient and/or jb4 family updated on plan of care and expected duration. Pain level reassessed. Patient is alert, oriented x 3, equal unlabored respirations, skin warm/dry/pink. 01:00 Reassessment: Patient appears in no apparent distress at this time. Patient and/or jb4 family updated on plan of care and expected duration. Pain level reassessed. Patient is alert, oriented x 3, equal unlabored respirations, skin warm/dry/pink. Vital Signs: 02/11 23:13 BP 139 / 93; Pulse 105; Resp 15; Temp 97.8(O); Pulse Ox 91% on R/A; Weight 149.69 kg; 5 Height 5 ft. 10 in. (177.80 cm); Pain 0/10; 02/12 00:00 BP 135 / 91; Pulse 104; Resp 17; Pulse Ox 98% on BiPAP; jb4 01:00 BP 150 / 108; Pulse 93; Resp 19; Pulse Ox 96% on BiPAP; jb4 01:44 BP 136 / 97; Pulse 83; Resp 20; Pulse Ox 95% on BiPAP; jb4 02/11 23:13 Body Mass Index 47.35 (149.69 kg, 177.80 cm) [facility] ED Course: 02/11 23:01 Patient arrived in ED. am2 23:07 Moncho Jean Baptiste MD is Attending Physician. [facility] 23:08 Carli Palmer RN is Primary Nurse. sm5 23:15 Triage completed. sm5 23:16 Arm band placed on right wrist. EKG completed in triage. Results shown to MD. sm5 23:16 Patient has correct armband on for positive identification. Placed in gown. Bed in low sm5 position. Call light in reach. Side rails up X2. Client placed on continuous cardiac and pulse oximetry monitoring. NIBP monitoring applied. 23:16 Inserted saline lock: 18 gauge in right forearm, using aseptic technique. Blood sm5 collected. 23:32 XRAY Chest (1 view) In Process Unspecified. EDMS 23:55 Ethan Whyte MD is Hospitalizing Provider. [facility] 02/12 02:13 No provider procedures requiring assistance completed. Patient admitted, IV remains in jb4 place. Administered Medications: 02/11 23:38 Discontinued: NS 0.9% 1000 ml IV at 125 ml/hr continuous caren 23:29 Drug: NS 0.9% 1000 ml Route: IV; Rate: 125 ml/hr; Site: right antecubital; jb4 02/12 00:11 Follow up: Response: No adverse reaction; IV Status: Order to discontinue infusion jb4 00:23 Drug: Lasix (furosemide) 40 mg Route: IVP; Site: right antecubital; jb4 01:15 Follow up: Response: No adverse reaction jb4 00:23 Drug: Eliquis (apixaban) 5 mg Route: PO; jb4 01:15 Follow up: Response: No adverse reaction 4 00:27 Drug: Digoxin 0.5 mg Route: IVP; Site: right antecubital; jb4 01:15 Follow up: Response: No adverse reaction jb4 00:30 Drug: Pepcid (famotidine) 20 mg Route: IVP; Site: right antecubital; jb4 01:15 Follow up: Response: No adverse reaction [facility] Medication: 02/11 23:16 VIS not applicable for this client. sm5 Outcome: 23:56 Decision to Hospitalize by Provider. [facility] 02/12 02:13 Admitted to Med/surg accompanied by nurse, via stretcher, room 210, with oxygen, Report jb4 called to GERARDO Cardenas Condition: stable Discharge instructions given to patient, Instructed on the need for admit, Demonstrated understanding of instructions. 02:14 Patient left the ED. jb4 Signatures: Dispatcher [employer] EDMoncho Nolan MD MD cha Bryson, James RN RN jb4 Hina Cooley Sarah, RN RN sm5
--- NOTE | 2022-02-11 23:58 | EDPHYS ---
Physician Documentation [facility] Name: Neville Mitchell Age: 47 yrs Sex: Male : 1975 Arrival Date: 02/11/2022 Time: 23:01 Bed 7 Private MD: ED Physician Moncho Jean Baptiste HPI: 02/11 23:49 This 47 yrs old Male presents to ER via Ambulatory with complaints of afib. caren 23:49 The patient has shortness of breath with light activity. Onset: The symptoms/episode caren began/occurred 3 day(s) ago. Duration: The symptoms are continuous, and are steadily getting worse. The patient's shortness of breath is aggravated by exertion, light activity, supine position. The patient presents with a history of irregular heart beat, heart racing. Context: The symptoms occur with exercise, with light activity, with strenuous activity. Modifying factors: The symptoms are aggravated by anxiety, light activity. The patient has elevated blood pressure and discovered this at home. Historical: - Allergies: 23:17 No Known Allergies; sm5 - Home Meds: 23:15 sotalol 80 mg Oral tab [Active]; Suboxone [Active]; phentermine Oral [Active]; Eliquis sm5 oral [Active]; - PMHx: 23:15 Atrial fibrillation; pulmonary embolisim; sm5 - PSHx: 23:15 R ACL repair; sm5 - Immunization history:: Client reports having NOT received the Covid vaccine. - Social history:: Smoking status: Patient denies any tobacco usage or history of. Patient uses alcohol, only on a social basis. - Family history:: not pertinent. ROS: 23:49 Constitutional: Negative for fever, chills, and weight loss, Eyes: Negative for injury, caren pain, redness, and discharge, ENT: Negative for injury, pain, and discharge, Neck: Negative for injury, pain, and swelling, Abdomen/GI: Negative for abdominal pain, nausea, vomiting, diarrhea, and constipation, Back: Negative for injury and pain, : Negative for injury, bleeding, discharge, and swelling, MS/Extremity: Negative for injury and deformity, Skin: Negative for injury, rash, and discoloration, Neuro: Negative for headache, weakness, numbness, tingling, and seizure, Psych: Negative for depression, anxiety, suicide ideation, homicidal ideation, and hallucinations, Allergy/Immunology: Negative for hives, rash, and allergies, Endocrine: Negative for neck swelling, polydipsia, polyuria, polyphagia, and marked weight changes, Hematologic/Lymphatic: Negative for swollen nodes, abnormal bleeding, and unusual bruising. 23:49 Cardiovascular: Positive for edema, orthopnea, palpitations. 23:49 Respiratory: Positive for cough, shortness of breath, on exertion. 23:49 MS/extremity: Positive for tenderness, of the right leg and left leg. Exam: 23:49 Constitutional: This is a well developed, well nourished patient who is awake, alert, caren and in no acute distress. Head/Face: Normocephalic, atraumatic. Eyes: Pupils equal round and reactive to light, extra-ocular motions intact. Lids and lashes normal. Conjunctiva and sclera are non-icteric and not injected. Cornea within normal limits. Periorbital areas with no swelling, redness, or edema. ENT: Nares patent. No nasal discharge, no septal abnormalities noted. Tympanic membranes are normal and external auditory canals are clear. Oropharynx with no redness, swelling, or masses, exudates, or evidence of obstruction, uvula midline. Mucous membranes moist. Neck: Trachea midline, no thyromegaly or masses palpated, and no cervical lymphadenopathy. Supple, full range of motion without nuchal rigidity, or vertebral point tenderness. No Meningismus. Chest/axilla: Normal chest wall appearance and motion. Nontender with no deformity. No lesions are appreciated. Abdomen/GI: Soft, non-tender, with normal bowel sounds. No distension or tympany. No guarding or rebound. No evidence of tenderness throughout. Back: No spinal tenderness. No costovertebral tenderness. Full range of motion. Male : Normal genitalia with no discharge or lesions. Skin: Warm, dry with normal turgor. Normal color with no rashes, no lesions, and no evidence of cellulitis. MS/ Extremity: Pulses equal, no cyanosis. Neurovascular intact. Full, normal range of motion. Neuro: Awake and alert, GCS 15, oriented to person, place, time, and situation. Cranial nerves II-XII grossly intact. Motor strength 5/5 in all extremities. Sensory grossly intact. Cerebellar exam normal. Normal gait. Psych: Awake, alert, with orientation to person, place and time. Behavior, mood, and affect are within normal limits. 23:49 Cardiovascular: Rate: tachycardic, Rhythm: irregularly irregular, Pulses: Pulses are 4+ in bilateral radial, brachial, femoral, popliteal, posterior tibial and and dorsalis pedis arteries.. Heart sounds: normal, normal S1and S2, no S3 or S4, no murmur, no rub, no gallop, Edema: 2+ edema to level of left midcalf and right midcalf, JVD: is noted bilaterally, to 3 cm. 23:49 ECG was reviewed by the Attending Physician. Vital Signs: 23:13 BP 139 / 93; Pulse 105; Resp 15; Temp 97.8(O); Pulse Ox 91% on R/A; Weight 149.69 kg; [facility] Height 5 ft. 10 in. (177.80 cm); Pain 0/10; 07 00:00 BP 135 / 91; Pulse 104; Resp 17; Pulse Ox 98% on BiPAP; jb4 01:00 BP 150 / 108; Pulse 93; Resp 19; Pulse Ox 96% on BiPAP; jb4 01:44 BP 136 / 97; Pulse 83; Resp 20; Pulse Ox 95% on BiPAP; jb4 02/11 23:13 Body Mass Index 47.35 (149.69 kg, 177.80 cm) [facility] MDM: 02/11 23:07 Patient medically screened. caren 23:53 Differential diagnosis: Anemia Anxiety Reaction CHF exacerbation, arrythmia, caren dehydration, hypertensive crisis, Malignant HTN, Myocardial Infarction pneumonia, pulmonary edema, reactive airway disease, Unstable Angina. Antibiotic administration: Not indicated. The patient's Wells Deep Vein Thrombosis Score was calculated as follows: Heart Rate >100 BPM (1.5 Pts) Previous DVT/PE (1.5 Pts) Total Score: 3-6 Pts - Mod Risk. The patient's pulmonary embolism risk score was calculated as follows: the patients heart rate is greater than 100 beats per minute (1.5 Pts) the patient has a history of a previous deep vein thrombosis or pulmonary embolism (1.5 Pts) Total Score: 3-6 points. This patient was found to be at moderate risk for a pulmonary embolism by using the Well's assessment criteria. Immunization status:. Data reviewed: vital signs, nurses notes, lab test result(s), EKG, radiologic studies, CT scan, plain films. Data interpreted: panel monitor: rate is 105 beats/min, rhythm is atrial fibrillation, Pulse oximetry: on room air is 91 %. Test interpretation: by ED physician or midlevel provider: ECG, plain radiologic studies. Counseling: I had a detailed discussion with the patient and/or guardian regarding: the historical points, exam findings, and any diagnostic results supporting the discharge/admit diagnosis, the presence of at least one elevated blood pressure reading (>120/80) during this emergency department visit, lab results, radiology results, the need for further work-up and treatment in the hospital. 02/11 23:09 Order name: Basic Metabolic Panel; Complete Time: 00:47 caren 02/11 23:09 Order name: CBC with Diff; Complete Time: 00:47 caren 02/11 23:09 Order name: LFT's; Complete Time: 00:47 caren 02/11 23:09 Order name: Magnesium; Complete Time: 00:47 caren 02/11 23:09 Order name: NT PRO-BNP; Complete Time: 00:47 caren 02/11 23:09 Order name: PT-INR; Complete Time: 00:47 [facility] 02/11 23:09 Order name: Troponin HS; Complete Time: 00:47 caren 02/11 23:09 Order name: XRAY Chest (1 view) [facility] 02/11 23:09 Order name: TSH; Complete Time: 00:47 [facility] 02/11 23:09 Order name: SARS-COV-2 RT PCR (Document "Date of Onset" if Symptomatic); Complete Time: caren 01:10 02/11 23:38 Order name: BIPAP [facility] 02/11 23:57 Order name: T4 Free; Complete Time: 00:47 [facility] 02/11 23:09 Order name: EKG; Complete Time: 23:10 caren 02/11 23:09 Order name: Cardiac monitoring; Complete Time: 23:30 caren 02/11 23:09 Order name: EKG - Nurse/Tech; Complete Time: 23:30 caren 02/11 23:09 Order name: IV Saline Lock; Complete Time: 23:30 caren 02/11 23:09 Order name: Labs collected and sent; Complete Time: 23:30 caren 02/11 23:09 Order name: O2 Per Protocol; Complete Time: 23:30 [facility] 02/11 23:09 Order name: O2 Sat Monitoring; Complete Time: 23:29 caren EC:49 Rate is 101 beats/min. Rhythm is irregularly irregular. QRS [place] is Normal. DE interval caren is normal. QRS interval is normal. QT interval is normal. No Q waves. T waves are Normal. No ST changes noted. Clinical impression: Atrial Fibrillation. Interpreted by me. Reviewed by me. Administered Medications: 23:38 Discontinued: NS 0.9% 1000 ml IV at 125 ml/hr continuous caren 23:29 Drug: NS 0.9% 1000 ml Route: IV; Rate: 125 ml/hr; Site: right antecubital; jb4 02/12 00:11 Follow up: Response: No adverse reaction; IV Status: Order to discontinue infusion jb4 00:23 Drug: Lasix (furosemide) 40 mg Route: IVP; Site: right antecubital; jb4 01:15 Follow up: Response: No adverse reaction jb4 00:23 Drug: Eliquis (apixaban) 5 mg Route: PO; jb4 01:15 Follow up: Response: No adverse reaction jb4 00:27 Drug: Digoxin 0.5 mg Route: IVP; Site: right antecubital; jb4 01:15 Follow up: Response: No adverse reaction jb4 00:30 Drug: Pepcid (famotidine) 20 mg Route: IVP; Site: right antecubital; jb4 01:15 Follow up: Response: No adverse reaction jb4 Disposition Summary: 02/11/22 23:56 Hospitalization Ordered Hospitalization Status: Inpatient Admission caren Provider: Ethan Whyte cha Condition: Fair caren Problem: new caren Symptoms: have improved caren Bed/Room Type: Standard caren Location: Telemetry/MedSurg (Inpatient)(02/12/22 01:10) Room Assignment: 210(02/12/22 01:10) Diagnosis - Chronic atrial fibrillation caren - Unspecified combined systolic (congestive) and diastolic (congestive) heart failure caren - Essential (primary) hypertension caren - Obesity, unspecified caren Forms: - Medication Reconciliation Form caren - SBAR form caren Signatures: Dispatcher [employer] EDMS Corrine John RN RN mw Anderson, Corey, MD MD cha Bryson, James, RN RN jb4 Carli Palmer RN RN effie5 Mi Smith PA PA sb3 Corrections: (The following items were deleted from the chart) 01:02/11 23:56 [facility] 02/12 01:10 02/11 23:56 Telemetry/MedSurg (Inpatient) [facility] 02/12 01:10 01:[address] [place] [address]
[2022-02-12] MEDS ORDERED: FAMOTIDINE 20 MG/2 ML VIAL IV ONE (00:28)
[2022-02-12] MEDS ORDERED: FUROSEMIDE 40 MG/4 ML VIAL ONE (00:28)
[2022-02-12] MEDS ORDERED: DIGOXIN 0.25 MG/ML AMP ONE (00:28)
[2022-02-12] MEDS ORDERED: APIXABAN 5 MG TABLET ONE (00:28)
--- NOTE | 2022-02-12 01:15 | P.HP ---
Certification for Inpatient Patient admitted to: Inpatient With expected LOS: <2 Midnights Patient will require the following post-hospital care: None Practitioner: I am a practitioner with admitting privileges, knowledge of patient current condition, hospital course, and medical plan of care. Services: Services provided to patient in accordance with Admission requirements found in Title 42 Section 412.3 of the Code of Federal Regulations Patient History Date of Service: 02/12/22 Primary Care Provider: Viviana Reason for admission: Afib RVR History of Present Illness: Patient is a 47-year-old male with hypertension, history of lower extremity DVT, recent diagnosis of afib who presented to the emergency department with a com plaint of palpitations and shortness of breath beginning today, occurring persistently all day. Patient noted to be in rapid atrial fibrillation upon arrival. He was given 0.5 digoxin, 5 mg eliquis, 40 mg lasix, and placed on bipap. He remains in afib, HR in the 90s-110s. Patient was discharged from this facility 3 days ago after a new onset of afib. He was seen by cardiology who started him on sotalol and Eliquis. Echocardiogram showed EF of 40-45% with moderate mitral regurg. Cardiology recommended follow-up in the office for electric cardioversion. Patient reports he was supposed to see cardiology next week. He is admitted for further evaluation and treatment. Allergies No Known Allergies Allergy (Unverified 02/08/22 08:51) Home medications list reviewed: Yes Home Medications: Buprenorphine HCl/Naloxone HCl [Suboxone 2 mg-0.5 mg Sl Film] 1 each SL DAILY 02/08/22 Phentermine HCl [Adipex-P] 37.5 mg PO DAILY 02/08/22 Apixaban [Eliquis] 5 mg PO BID #60 tablet 02/09/22 Sotalol HCl [Betapace*] 80 mg PO BID 6AM 6PM #60 tab 02/09/22 - Past Medical/Surgical History Diabetic: No -: Hypertension -: History of lower extremity DVT -: Atrial Fibrillation -: CHF -: Right ACL Repair Psychosocial/ Personal History: Patient lives with family. - Family History Father -: Cancer (Lung cancer) - Social History Smoking Status: Never smoker Alcohol use: Yes CD- Drugs: No Caffeine use: Yes Place of Residence: Home Review of Systems Respiratory: Shortness of Breath Cardiovascular: Palpitations Physical Examination - Physical Exam General: Alert, In no apparent distress, Obese HEENT: Atraumatic, PERRLA, EOMI, Sclerae nonicteric Neck: Supple, 2+ carotid pulse no bruit, No LAD, Without JVD or thyroid abnormality Respiratory: Diminished Cardiovascular: No edema, Irregular heart rate/rhythm (afib) Gastrointestinal: Normal bowel sounds, No tenderness Musculoskeletal: No tenderness Integumentary: No rashes Neurological: Normal speech, Normal strength at 5/5 x4 extr, Normal tone, Normal affect - Studies Laboratory Data (last 24 hrs) 02/11/22 23:10: PT 13.4 H, INR 1.21 02/11/22 23:10: WBC 13.9 H, Hgb 15.7, Hct 47.1, Plt Count 393 D 02/11/22 23:10: Sodium 137, Potassium 4.1, BUN 22 H, Creatinine 0.86, Glucose 129 H, Magnesium 2.2, Total Bilirubin 0.5, AST 35, ALT 75, Alkaline Phosphatase 97 Assessment and Plan - Problems (Diagnosis) (1) Rapid atrial fibrillation Current Visit: Yes Status: Acute (2) CHF (congestive heart failure) Current Visit: Yes Status: Acute Qualifiers: Heart failure type: systolic Heart failure chronicity: acute on chronic Qualified Code(s): I50.23 - Acute on chronic systolic (congestive) heart failure (3) History of DVT (deep vein thrombosis) Current Visit: Yes Status: Chronic (4) Leukocytosis Current Visit: Yes Status: Acute Qualifiers: Leukocytosis type: unspecified Qualified Code(s): D72.829 - Elevated white blood cell count, unspecified (5) Hypertension Current Visit: Yes Status: Chronic Qualifiers: Hypertension type: primary hypertension Qualified Code(s): I10 - Essential (primary) hypertension - Plan -Continue eliquis and sotalol -Monitor on telemetry -Cardiology consult. Patient will likely need cardioversion. -Continue bipap -Monitor and optimize electrolytes. -IV metoprolol as needed for rapid heart rates -Eliquis for VTE ppx -Full code Discharge Plan: Home Plan to discharge in: 48 Hours - Advance Directives Does patient have a Living Will: No Does patient have a Durable POA for Healthcare: No - Code Status/Comfort Care Code Status Assessed: Yes (Full) Critical Care: No Time Spent Managing Pts Care (In Minutes): 50
[2022-02-12] MEDS ORDERED: ALBUTEROL 2.5 MG/3 ML NEB SOL NEB PRN (01:41)
[2022-02-12] MEDS ORDERED: ALPRAZOLAM 0.25 MG TABLET PO PRN (01:41)
[2022-02-12] MEDS ORDERED: ACETAMINOPHEN 500 MG TAB PO PRN (01:41)
[2022-02-12 02:14] VITALS: BMI 47.3
[2022-02-12 03:49] LABS: Urine Appearance Clear (Clear); Urine Bilirubin Negative (Negative); Urine Blood Trace-intact (Negative); Urine Color Yellow (Yellow); Urine Glucose Negative (Negative); Urine Protein Negative (Negative); Urine Specific Gravity 1.015 (1.005-1.030); Urine Urobilinogen 0.2 mg/dL (0.2-1.0); Urine pH 5.5 (5.0-7.0)
[2022-02-12 04:08] LABS: Urine Bacteria <20 /HPF (NONE SEEN); Urine RBC <5 /HPF (NONE SEEN)
[2022-02-12 05:44] LABS: Absolute Lymphocytes (CBC) 3.5 K/uL (0.7-4.9); Hematocrit 44.2 % (39.6-49.0); Lymphocytes % 29.6 % (15.3-44.8); MCV 84.8 fL (80-100); MPV 7.7 fL (7.6-11.3); RBC Red Blood Cell Count 5.22 M/uL (4.33-5.43)
[2022-02-12 05:58] LABS: Magnesium 2.2 mg/dL (1.8-2.4); Potassium 3.5 mmol/L (3.5-5.1)
[2022-02-12] MEDS ORDERED: POTASSIUM 25 MEQ EFFERV TAB PO ONE (06:10)
[2022-02-12] MEDS ORDERED: APIXABAN 5 MG TABLET PO SCH ×2 (09:00→21:00)
[2022-02-12] MEDS: SOTALOL HCL 80 MG TAB PO SCH ×2 (09:09→17:13)
[2022-02-12] MEDS: APIXABAN 5 MG TABLET PO SCH ×2 (09:09→21:48)
[2022-02-12] MEDS ORDERED: FUROSEMIDE 20 MG/ 2ML VIAL IV ONE (09:51)
[2022-02-12] MEDS ORDERED: AMLODIPINE 5 MG TAB PO ONE (09:52)
[2022-02-12] MEDS: SPIRONOLACTONE 25 MG TABLET PO SCH ×2 (10:38→21:47)
[2022-02-12] MEDS: FUROSEMIDE 20 MG/ 2ML VIAL IV SCH (17:13)
[2022-02-12] MEDS ORDERED: SOTALOL HCL 80 MG TAB PO SCH (18:00)
--- NOTE | 2022-02-13 02:09 | CON ---
Date of Consultation: 02/12/2022 Reason For Consultation: Atrial fibrillation and congestive heart failure. History Of Present Illness: Mr. Shepherd is 47, was just in the hospital recently. He has a history of atrial fibrillation that was presumably new onset. Ejection fraction by echo showed 45%. Has trevizo d a history of pulmonary embolus in the past. He was sent home on sotalol and Eliquis. He also take s phentermine. He comes back with CHF symptoms, PND, orthopnea, and pedal edema. No chest pain. No syncope. No fever or chills. He is feeling better and better after diuresis. He remains in atrial fibrillation at a rate of about 80. Past Medical History: As stated above. Allergies: NONE. Review of Systems: Negative. Social History: Negative. Family History: Noncontributory. Medications: Listed earlier. Physical Examination: Vital Signs: Blood pressure was 170/95. HEENT: Negative. Neck: Supple with no bruit. Chest: Clear. Cardiac: Revealed atrial fibrillation. Abdomen: Obese. Extremities: Revealed no clubbing or cyanosis. He had trace edema. Diagnostic Data: Showed a BNP of 1351. Impression And Plan: Congestive heart failure, acute on chronic systolic exacerbation with recent at rial fibrillation. The patient has been back on sotalol and Eliquis. We need to treat him with IV L asix for now. I would prefer that he stops his phentermine. We will consider direct current cardiov ersion in the very near future. ZITA/FAUSTINA Voice ID: [id number] Report ID: [id number]
[2022-02-13 03:43] LABS: Absolute Lymphocytes (CBC) 3.6 K/uL (0.7-4.9); Hematocrit 43.8 % (39.6-49.0); Lymphocytes % 27.1 % (15.3-44.8); MCV 83.8 fL (80-100); MPV 7.4 fL (7.6-11.3); RBC Red Blood Cell Count 5.23 M/uL (4.33-5.43)
[2022-02-13 04:05] LABS: Magnesium 2.4 mg/dL (1.8-2.4); Potassium 3.7 mmol/L (3.5-5.1)
[2022-02-13] MEDS: SOTALOL HCL 80 MG TAB PO SCH (05:26)
[2022-02-13] MEDS ORDERED: POTASSIUM CL SA 10 MEQ TAB PO ONE (06:00)
[2022-02-13] MEDS: FUROSEMIDE 20 MG/ 2ML VIAL IV SCH (09:03)
[2022-02-13] MEDS: APIXABAN 5 MG TABLET PO SCH (09:03)
[2022-02-13] MEDS: SPIRONOLACTONE 25 MG TABLET PO SCH (09:04)
--- NOTE | 2022-02-13 09:33 | P.PN ---
Subjective Date of Service: 02/13/22 Primary Care Provider: Viviana Chief Complaint: Afib RVR Subjective: Improving (Patient is doing much better denies any shortness of breath is in A. fib) Review of Systems 10-point ROS is otherwise unremarkable Physical Examination - Vital Signs Temperature: 97.5 F Blood Pressure: 123/91 Pulse: 90 Respirations: 18 Pulse Ox (%): 95 - Physical Exam General: Alert, In no apparent distress, Oriented x3 Respiratory: Clear to auscultation bilaterally Cardiovascular: No edema, Regular rate/rhythm, Normal S1 S2 Gastrointestinal: Normal bowel sounds Assessment And Plan - Current Problems (Diagnosis) (1) CHF (congestive heart failure) Current Visit: Yes Status: Acute Plan: Patient is doing much better denies any orthopnea blood pressure now better controlled Qualifiers: Heart failure type: systolic Heart failure chronicity: acute on chronic Qualified Code(s): I50.23 - Acute on chronic systolic (congestive) heart failure (2) Rapid atrial fibrillation Current Visit: Yes Status: Acute Plan: Patient has a history of atrial fibrillation rate is consists control possible cardioversion today
--- NOTE | 2022-02-13 10:04 | P.DS ---
Admission Date: 02/12/22 Discharge Date: 02/13/22 Primary Care Provider: Viviana Disposition: ROUTINE DISCHARGE Discharge Condition: GOOD Reason for Admission: Afib RVR - Problems (1) CHF (congestive heart failure) Current Visit: Yes Status: Acute Qualifiers: Heart failure type: systolic Heart failure chronicity: acute on chronic Qualified Code(s): I50.23 - Acute on chronic systolic (congestive) heart failure (2) Rapid atrial fibrillation Current Visit: Yes Status: Acute Brief History of Present Illness: Patient is 47 years of age admitted with respiratory distress heart failure Hospital Course: Admitted to the hospital diuresed at time of discharge he was alert oriented responsive and Ortho no orthopnea denied any shortness of breath atrial fibrillation controlled chest is clear cardiovascular system heart sounds normal patient is in A. fib Labs reviewed patient to take spironolactone and Lasix in addition to sotalol and Eliquis cussed with cardiology cardioversion planned as an outpatient Blood pressures much better controlled patient has been advised to continue with his anticoagulation and Eliquis Vital Signs/Physical Exam: Temp Pulse Resp BP Pulse Ox 97.5 F 90 18 123/91 H 95 02/13/22 08:00 02/13/22 09:04 02/13/22 08:00 02/13/22 09:04 02/13/22 08:00 Laboratory Data at Discharge: WBC 13.5 K/uL (4.3-10.9) H 02/13/22 02:45 Hgb 14.9 g/dL (13.6-17.9) 02/13/22 02:45 Hct 43.8 % (39.6-49.0) 02/13/22 02:45 Plt Count 306 K/uL (152-406) 02/13/22 02:45 PT 13.4 SECONDS (9.5-12.5) H 02/11/22 23:10 INR 1.21 02/11/22 23:10 Sodium 136 mmol/L (136-145) 02/13/22 02:45 Potassium 3.7 mmol/L (3.5-5.1) 02/13/22 02:45 BUN 17 mg/dL (7-18) 02/13/22 02:45 Creatinine 0.76 mg/dL (0.55-1.3) 02/13/22 02:45 Glucose 101 mg/dL (74-106) 02/13/22 02:45 Magnesium 2.4 mg/dL (1.8-2.4) 02/13/22 02:45 Total Bilirubin 0.5 mg/dL (0.2-1.0) 02/11/22 23:10 AST 35 U/L (15-37) 02/11/22 23:10 ALT 75 U/L (12-78) 02/11/22 23:10 Alkaline Phosphatase 97 U/L (45-117) 02/11/22 23:10 Home Medications: Buprenorphine HCl/Naloxone HCl [Suboxone 2 mg-0.5 mg Sl Film] 1 each SL DAILY 02/08/22 Apixaban [Eliquis] 5 mg PO BID #60 tablet 02/09/22 Sotalol HCl [Betapace*] 80 mg PO BID 6AM 6PM #60 tab 02/09/22 Furosemide [Lasix*] 20 mg PO DAILY #30 tab 02/13/22 Spironolactone [Aldactone*] 25 mg PO DAILY #30 tab 02/13/22 New Medications: Spironolactone [Aldactone*] 25 mg PO DAILY #30 tab Furosemide [Lasix*] 20 mg PO DAILY #30 tab Physician Discharge Instructions: : patient to call and follow-up with /2 diuretic prescriptions faxed cardioversion as an outpatient Diet: Low sodium Activity: Ad aba Followup: NONE,NONE [Primary Care Provider] -
[2022-02-13 11:09] VITALS: O2SAT 95
--- NOTE | 2022-02-13 11:28 | RAD REPORT ---
EXAM DESCRIPTION: RAD - Chest Single View - 02/11/2022 11:30 pm CLINICAL HISTORY: The patient is 47 years old and is Male; CHEST PAIN TECHNIQUE: Frontal view of the chest. COMPARISON: February 08, 2022. FINDINGS: Lungs: Patchy bibasilar opacities, increased compared to prior. Prominent interstitial markings suggestive of interstitial edema. Pleural space: Unremarkable. No pneumothorax. Heart: Unremarkable. Mediastinum: Unremarkable. Bones/joints: Unremarkable. IMPRESSION: 1. Patchy bibasilar opacities, increased compared to prior. 2. Prominent interstitial markings suggestive of interstitial edema. Electronically signed by: Jun Hart MD 02/12/2022 12:06 AM CDT Due to temporary technical issues with the PACS/Fluency reporting system, reports are being signed by the in house radiologists without review as a courtesy to insure prompt reporting. The interpreting radiologist is fully responsible for the content of the report.
[2022-02-13 12:36] VITALS: BP 140/86; TEMP 96.3
--- NOTE | 2022-02-14 08:02 | EKG ---
Test Date: 2022-02-11 Test Time: 23:01:13 Certified Personal Finance Counselor: JOSE MEASUREMENT RESULTS: Intervals: Rate: 101 SC: QRSD: 90 QT: 386 QTc: 500 [place]: P: SC: QRS: 72 T: 51 INTERPRETIVE STATEMENTS: Atrial fibrillation with rapid ventricular response with premature ventricular or aberrantly conducted complexes Abnormal ECG Compared to ECG 02/08/2022 07:29:45 Ventricular premature complex(es) now present Prolonged QT interval no longer present Electronically Signed On 02-14-22 07:55:59 CDT by Yasmani Charles
[2022-02-14] MEDS ORDERED: FUROSEMIDE 20 MG TABLET PO SCH (09:00)
[2022-02-14] MEDS ORDERED: SPIRONOLACTONE 25 MG TABLET PO SCH (09:00)
--- OUTSIDE RECORDS SUMMARY | 2022-03-01 08:01 | XMS REPORT | Continuity of Care Document ---
:1975 Author Organization [facility] t Address [address] [place] [address] Care Team Providers Name Role Phone Only, Test Attending Clinician Unavailable John HA Attending Clinician JOHN Attending Clinician Unavailable Doctor Unassigned, Name Attending Clinician Unavailable Lab, Fam Pob I Attending Clinician Unavailable Anene BUSINESS DEVELOPMENT ANALYST Attending Clinician ANENE Attending Clinician Unavailable Millicent HA, H Attending Clinician Perla MONTAÑO Attending Clinician PERLA Attending Clinician Unavailable CHANDLER Attending Clinician Unavailable Payers Payer Name Policy Type Policy Number Effective Date Expiration Date S ource Problems This patient has no known problems. Allergies, Adverse Reactions, Alerts Allergy Allergy Status Severity Reaction(s) Onset Inactive Treating Comm ents Source Name Type Date Date Clinician NO KNOWN Drug Active [facility] ALLERGIE Class [facility] of [facility] Social History Social Habit Start Date Stop Date Quantity Comments Source Exposure to Not sure [facility] SARS-CoV-2 (event) Medica l Branch Sex Assigned At [birth year] [facility] 00:00:00 00:00:00 Smoking Status Start Date Stop Date Source Tobacco smoking consumption unknown [facility] Medications This patient has no known medications. Procedures Procedure Date / Time Performed Performing Clinician [facility] e ASSIGNMENT OF BENEFITS 2020-09-17 21:09:34 Doctor Unassigned, No [facility] Plan of Care Planned Activity Planned Date Details Comments Source Future Scheduled 2021-06-16 [facility] 05:28:35 (1) [code = COVID-19 VACCINE (1)] Future Scheduled 2021-06-16 INFLUENZA VACCINE [facility] 05:28:35 [code = INFLUENZA VACCINE] Encounters Start End Encounter Admission Attending Care Care Encounter Source Date/Time Date/Time Type Type Clinicians Facility Department ID 2020-09-17 2020-09-17 Laboratory Only, Adc Test [facility] [id number]. [id number] Univers 15:09:07 15:24:07 Only Rosie Mcnulty [id number] ity of [place] [id number] [place] [facility] [phone] [facility] [address] 2020-09-17 2020-09-17 Outpatient R [facility] [id number] Univers 14:45:00 14:45:00 [id number] ity [facility] 2020-09-17 2020-09-17 Outpatient R JOHN [facility] [id number] Univers 14:45:00 14:45:00 ROSIE ity [facility] 2020-09-17 2020-09-17 Orders Doctor DEL REAL [id number] Univers 00:00:00 00:00:00 Only Unassigned, CHAUNCEY [id number] ity of [place] [facility] [id number] Daniel as [phone] [facility] 009 Branch 2020-09-07 2020-09-07 Laboratory Lab, [facility] Fam Pob I [facility] 1.2. [id number] Univers 08:37:07 08:56:20 Only Linda Lindsey [id number] ity of [place] [id number] Daniel as Professio [phone] [address] 2020-09-07 2020-09-07 Outpatient R [facility] [id number] Univers 08:40:00 08:40:00 [id number] ity [facility] 2020-09-07 2020-09-07 Outpatient R ALEX [facility] [id number] Univers 08:40:00 08:40:00 LINDA ity [facility] 2020-08-24 2020-08-24 Letter NASIMA Ricks [id number] Univers 00:00:00 00:00:00 (Out) Toby Kady CHA[place]CEY [id number] i ty of [facility] [id number] Daniel as [phone] [facility] [address] 2020-08-20 2020-08-20 Laboratory Lab, Adc Fam Pob I [facility] 1.2. [id number] Univers 17:46:27 18:06:27 Only Nasima Duncan [facility] [id number] ity [facility] [id number] Daniel as Professio [phone] Ar [address] Office [address] 2020-08-20 2020-08-20 Outpatient R PERLA [facility] [id number] [facility] 17:50:00 17:50:00 NASIMA robertson [facility] 2020-08-20 2020-08-20 Letter Doctor NASIMA [id number] Univers 00:00:00 00:00:00 (Out) UnassignedCHAUNCEY [id number] ity of [place] [facility] [id number] Daniel as [phone] [address] 2020-03-29 2020-03-29 Outpatient MICHAEL ARTEAGA [facility] [id number] [place] 00:00:00 00:00:[address] Results This patient has no known results.
== END 2022-02-13 14:14 | disposition home or self-care (01) | DRG 308 ==
LOC: ER 23:00 → ERHOLD 02-12 01:08 → 2ND 02-12 01:33
PROVIDERS: ADMIT Internal Medicine Sleep Medicine; ATTEND Internal Medicine Sleep Medicine
PROC: 5A09357 Assistance with Respiratory Ventilation, Less than 24 Consecutive Hours, Continuous Positive Airway Pressure (ICD-10-PCS; principal; 2022-02-12)
DX: I48.91 Unspecified atrial fibrillation (principal); I50.23 Acute on chronic systolic (congestive) heart failure; I11.0 Hypertensive heart disease with heart failure; R06.03 Acute respiratory distress; I34.0 Nonrheumatic mitral (valve) insufficiency; D72.829 Elevated white blood cell count, unspecified; Z20.822 Contact with and (suspected) exposure to COVID-19; Z28.310 Unvaccinated for COVID-19; Z79.899 Other long term (current) drug therapy; Z86.718 Personal history of other venous thrombosis and embolism; Z86.711 Personal history of pulmonary embolism; Z80.1 Family history of malignant neoplasm of trachea, bronchus and lung
CPT/HCPCS: 36415; 71045; 80048; 80076; 81003; 81015; 83036; 83735; 83880; 84439; 84443; 84484; 85025; 85610; 93005; 94660; 94760; 96361; 96374; 96375; 99285; J1160; J1940; J3490; J7030; U0003

== ENCOUNTER 2022-02-21 06:30 | Day surgery (SDC) | payer BC ==
--- NOTE | 2022-02-20 18:38 | RAD REPORT ---
EXAM DESCRIPTION: RAD - Chest Pa And Lat (2 Views) - 02/20/2022 6:27 pm CLINICAL HISTORY: pre-cath procedure COMPARISON: Portable 02/11/2022 and 02/08/2022 TECHNIQUE: Frontal and lateral views of the chest were obtained. FINDINGS: The lungs are clear of a focal mass or consolidation. Central lung markings are mildly pro minent but decreased prior imaging. Heart size is upper normal. Central vasculature is mildly promi nent but decreased from prior imaging No pleural effusion or pneumothorax seen. No acute bony findin g noted. No aortic abnormality. IMPRESSION: No acute focal lung parenchymal process. Heart, vasculature and lung markings are mildly prominent but less pronounced than seen on prior imag ing. In the absence of any acute clinical symptoms, this is probably baseline for the patient rather than minimal failure or volume overload.
[2022-02-20 19:08] LABS: Protime INR 1.04
[2022-02-20 19:15] LABS: SARS-CoV-2 Antigen Rapid Res Negative (Negative)
[2022-02-21] MEDS ORDERED: NA CHLORIDE 0.9% 500 ML ONE (06:46)
[2022-02-21] MEDS ORDERED: MIDAZOLAM HCL 2 MG/2 ML INJ ONE (07:04)
[2022-02-21] MEDS ORDERED: FLUMAZENIL 0.1 MG/ML (5 mL VIAL) IV ONE (07:05)
[2022-02-21] MEDS ORDERED: ATROPINE SULF 1 MG/10 ML SYR IV ONE (07:05)
[2022-02-21] MEDS ORDERED: METOPROLOL TARTRATE 5 MG/5 ML INJ IV ONE ×2 (07:05→07:50)
[2022-02-21] MEDS ORDERED: MIDAZOLAM HCL 15 ML ONE (07:05)
--- NOTE | 2022-02-21 12:22 | OP ---
Date of Procedure: 02/21/2022 Surgeon: Yasmani Charles MD Institutional Aide: Ms. Diane Santoyo. Procedure: Direct current cardioversion. Indication: Atrial fibrillation. Description Of Procedure: Mr. Shepherd was admitted to the hospital as an outpatient for recurrent a trial fibrillation and mild systolic congestive heart failure, failure of his atrial fibrillation, on sotalol 80 b.i.d. and Eliquis. He was admitted to the [facility] lab[facility] as an outpatient. He was given a to bryanna of 20 mg of Versed. He received 5 different shocks at 100, 200, 300, and 360 joules x2. He woul d convert to sinus rhythm for a few seconds and then he will go back to atrial fibrillation. There w ere no complications. No blood loss. Final Diagnosis: Unsuccessful cardioversion from atrial fibrillation. The patient remained in atria l fibrillation with rapid ventricular response. We will discontinue his sotalol, continue anticoagul ation, put him on amiodarone 400 b.i.d. We will see him in the office in a week. He can go home whe n he wakes up. The case was discussed with his . If the amiodarone does not work, we will do an other cardioversion on amiodarone. Following that, we will refer him for an ablation. ZITA/FAUSTINA Voice ID: [id number] Report ID: [id number]
[2022-02-21 15:25] VITALS: BP 109/55; O2SAT 98
== END 2022-02-21 10:15 | disposition home or self-care (01) ==
LOC: CCL 06:30
DX: I48.91 Unspecified atrial fibrillation (principal); I50.20 Unspecified systolic (congestive) heart failure; Z79.01 Long term (current) use of anticoagulants; Z86.711 Personal history of pulmonary embolism; Z20.822 Contact with and (suspected) exposure to COVID-19
CPT/HCPCS: 36415; 85610; 85730; 71046; 92960; 87811; J2250 ×2; J7040

== ENCOUNTER 2022-02-28 23:48 | Emergency (ER) | payer BC ==
[2022-03-01 00:50] LABS: Protime INR 1.17
[2022-03-01 00:53] LABS: Absolute Lymphocytes (CBC) 3.3 K/uL (0.7-4.9); Hematocrit 40.4 % (39.6-49.0); Lymphocytes % 25.4 % (15.3-44.8); MCV 84.8 fL (80-100); MPV 7.4 fL (7.6-11.3); RBC Red Blood Cell Count 4.77 M/uL (4.33-5.43)
[2022-03-01 01:08] LABS: Magnesium 2.3 mg/dL (1.8-2.4); Potassium 4.6 mmol/L (3.5-5.1); Troponin High Sensitivity 11.9 pg/mL (<58.9)
[2022-03-01] MEDS ORDERED: HYDRALAZINE HCL 20 MG/ML VIAL ONE (01:37)
[2022-03-01] MEDS ORDERED: FUROSEMIDE 40 MG/4 ML VIAL ONE (01:37)
--- NOTE | 2022-03-01 05:43 | ER ---
Nurse's Notes [facility] Name: Neville Mitchell Age: 47 yrs Sex: Male : 1975 Arrival Date: 02/28/2022 Time: 23:53 Bed 6 Private MD: Diagnosis: Unspecified combined systolic (congestive) and diastolic (congestive) heart failure;Persistent atrial fibrillation;Pulmonary edema;Pleural effusion, not elsewhere classified Presentation: 02/28 23:53 Chief complaint: High home BP readings and exertional SOB today. Hx of HTN and hb AFIB+RVR, cardioversion last week, appt with coke drawer hand tomorrow. Denies pain. Coronavirus screen: At this time, the client does not indicate any symptoms associated with coronavirus-19. Ebola Screen: No symptoms or risks identified at this time. Initial Sepsis Screen: Does the patient meet any 2 criteria? No. Patient's initial sepsis screen is negative. Does the patient have a suspected source of infection? No. Patient's initial sepsis screen is negative. Risk Assessment: Do you want to hurt yourself or someone else? Patient reports no desire to harm self or others. Onset of symptoms was February 28, 2022. 23:53 Method Of Arrival: Ambulatory hb 23:53 Acuity: ZHAO 3 hb Historical: - Allergies: 23:56 No Known Allergies; hb - Home Meds: 23:56 Amiodarone Oral [Active]; Eliquis Oral [Active]; Suboxone [Active]; Furosemide Oral hb [Active]; Spironolactone Oral [Active]; 03/01 00:41 phentermine Oral [Active]; sotalol 80 mg Oral tab [Active]; kd3 - PMHx: 02/28 23:56 Atrial fibrillation; pulmonary embolisim; hb - PSHx: 23:56 R ACL repair; hb - Immunization history:: Client reports having NOT received the Covid vaccine. - Social history:: Smoking status: Patient denies any tobacco usage or history of. - Family history:: not pertinent. - Hospitalizations: : No recent hospitalization is reported. Screenin/20 00:26 Abuse screen: Denies threats or abuse. Denies injuries from another. Nutritional kd3 screening: No deficits noted. Tuberculosis screening: No symptoms or risk factors identified. Fall Risk IV access (20 points). Assessment: 00:41 General: Appears in no apparent distress. Behavior is calm, cooperative. Pain: Denies kd3 pain. Neuro: Level of Consciousness is awake, alert, obeys commands, Oriented to person, place, time, situation. Respiratory: Airway is patent Trachea midline Respiratory effort is even, unlabored. Vital Signs: 02/28 23:53 BP 156 / 111; Pulse 107; Resp 20; Temp 97.4; Pulse Ox 98% on R/A; Weight 149.69 kg; hb Height 5 ft. 10 in. (177.80 cm); Pain 0/10; 03/01 01:00 BP 140 / 108; Pulse 105; Resp 15 S; Pulse Ox 95% on R/A; as6 02:00 BP 143 / 89; Pulse 106; Resp 17 S; Pulse Ox 98% on R/A; as6 03:05 BP 119 / 90; Pulse 107; Resp 12 S; Pulse Ox 94% on R/A; as6 04:53 BP 129 / 88; Pulse 102; Resp 18; Pulse Ox 100% on R/A; kd3 02/28 23:53 Body Mass Index 47.35 (149.69 kg, 177.80 cm) hb ED Course: 02/28 23:53 Patient arrived in ED. hb 23:55 Adarsh Warren MD is Attending Physician. rn 23:56 Triage completed. hb 23:56 Arm band placed on. hb 23:59 Danae Dexter, GERARDO is Primary Nurse. kd3 03/01 00:26 Patient has correct armband on for positive identification. kd3 00:26 No provider procedures requiring assistance completed. Inserted saline lock: 20 gauge kd3 in right antecubital area, using aseptic technique. Blood collected. 05:50 IV discontinued, intact, bleeding controlled, No redness/swelling at site. Pressure kd3 dressing applied. 06:43 Extremity Venous Uni Ltd US In Process Unspecified. EDMS 07:05 CT Chest For PE Angio In Process Unspecified. EDMS 07:50 XRAY Chest (1 view) In Process Unspecified. EDMS Administered Medications: 01:23 CANCELLED (Duplicate Order): Metoprolol TARTRATE 50 mg PO once rn 01:31 Drug: hydrALAZINE 5 mg Route: IVP; Site: right antecubital; kd3 05:51 Follow up: Response: No adverse reaction; Blood pressure is lowered kd3 01:31 Drug: Lasix (furosemide) 40 mg Route: IVP; Site: right antecubital; kd3 05:51 Follow up: Response: No adverse reaction kd3 Medication: 00:41 VIS not applicable for this client. kd3 Outcome: 05:42 Discharge ordered by . rn 05:50 Discharged to home ambulatory. kd3 05:50 Condition: stable 05:50 Discharge instructions given to patient, family, Instructed on discharge instructions, follow up and referral plans. Demonstrated understanding of instructions, follow-up care. 05:51 Patient left the ED. kd3 Signatures: Dispatcher [employer] EDMS Adarsh Warren MD MD rn Baxter, Heather RN Roni Grover RN RN as6 Danae Dexter RN RN kd3
--- NOTE | 2022-03-01 05:43 | EDPHYS ---
Physician Documentation [facility] Name: Neville Mitchell Age: 47 yrs Sex: Male : 1975 Arrival Date: 02/28/2022 Time: 23:53 Bed 6 Private MD: ED Physician Adarsh Warren HPI: 03/01 02:00 This 47 yrs old Male presents to ER via Ambulatory with complaints of sob. rn 02:00 The patient has shortness of breath at rest, with light activity. rn 02:00 Onset: The symptoms/episode began/occurred yesterday. Duration: The symptoms are rn intermittent. The patient's shortness of breath is aggravated by supine position, talking, walking, is alleviated by rest. Associated signs and symptoms: Pertinent negatives: chest pain, non-productive cough, productive cough, diaphoresis, fever, hemoptysis. Severity of symptoms: At their worst the symptoms were moderate in the emergency department the symptoms are unchanged. The patient has experienced similar episodes in the past. The patient has been recently seen by a physician:. Pt reports recent diagnosis of afib with RVR, cardioversion did not work, has appt coming up with Dr. Charles, taking eliquis. Reports last night began to feel sob, palpitations, not as bad as when came in with RVR, but concerning. No fever. Also reports increased swelling of legs, R>L. + hx of dvt and PE. . Historical: - Allergies: 02/28 23:56 No Known Allergies; hb - Home Meds: 23:56 Amiodarone Oral [Active]; Eliquis Oral [Active]; Suboxone [Active]; Furosemide Oral hb [Active]; Spironolactone Oral [Active]; 03/01 00:41 phentermine Oral [Active]; sotalol 80 mg Oral tab [Active]; kd3 - PMHx: 02/28 23:56 Atrial fibrillation; pulmonary embolisim; hb - PSHx: 23:56 R ACL repair; hb - Immunization history:: Client reports having NOT received the Covid vaccine. - Social history:: Smoking status: Patient denies any tobacco usage or history of. - Family history:: not pertinent. - Hospitalizations: : No recent hospitalization is reported. ROS: 03/01 02:00 Constitutional: Negative for fever, chills, and weight loss, Eyes: Negative for injury, rn pain, redness, and discharge, Cardiovascular: Negative for chest pain, + palpitations and edema Respiratory: + sob Abdomen/GI: Negative for abdominal pain, nausea, vomiting, diarrhea, and constipation, Back: Negative for injury and pain, MS/Extremity: + swelling of legs Skin: Negative for injury, rash, and discoloration, Neuro: Negative for headache, weakness, numbness, tingling, and seizure. Exam: : ECG was reviewed by the Attending Physician. rn 02:02 Constitutional: This is a well developed, well nourished patient who is awake, alert, rn + tachypnea Head/Face: Normocephalic, atraumatic. Eyes: Periorbital areas with no swelling, redness, or edema. Cardiovascular: Tachycardic, irregular Respiratory: + mild tachypnea, no retractions Abdomen/GI: soft, non-tender Skin: Warm, dry MS/ Extremity: Pulses equal, no cyanosis. Neurovascular intact. Full, normal range of motion. RLE with increased circumference, 2+ pitting edema bilateral lower ext. Neuro: Awake and alert, GCS 15 Vital Signs: 02/28 23:53 BP 156 / 111; Pulse 107; Resp 20; Temp 97.4; Pulse Ox 98% on R/A; Weight 149.69 kg; hb Height 5 ft. 10 in. (177.80 cm); Pain 0/10; 03/01 01:00 BP 140 / 108; Pulse 105; Resp 15 S; Pulse Ox 95% on R/A; as6 02:00 BP 143 / 89; Pulse 106; Resp 17 S; Pulse Ox 98% on R/A; as6 03:05 BP 119 / 90; Pulse 107; Resp 12 S; Pulse Ox 94% on R/A; as6 04:53 BP 129 / 88; Pulse 102; Resp 18; Pulse Ox 100% on R/A; kd3 02/28 23:53 Body Mass Index 47.35 (149.69 kg, 177.80 cm) hb MDM: 02/28 23:55 Patient medically screened. rn 03/01 05:14 ED course: still waiting on read of CT PE protocol. Has urinated several times, states rn feels much better, and denies dyspnea with exertion. . 05:40 Differential diagnosis: CHF exacerbation, Myocardial Infarction pneumonia, Pneumothorax rn pulmonary edema, Pulmonary Embolism. Data reviewed: vital signs, nurses notes, lab test result(s), EKG, radiologic studies, CT scan, plain films, ultrasound, and as a result, I will discharge patient. Counseling: I had a detailed discussion with the patient and/or guardian regarding: the historical points, exam findings, and any diagnostic results supporting the discharge/admit diagnosis, lab results, radiology results, the need for outpatient follow up, to return to the emergency department if symptoms worsen or persist or if there are any questions or concerns that arise at home. Response to treatment: the patient's symptoms have markedly improved after treatment, and as a result, I will discharge patient. Special discussion: I discussed with the patient/guardian in detail that at this point there is no indication for admission to the hospital. It is understood, however, that if the symptoms persist or worsen the patient needs to return immediately for re-evaluation. Based on the history and exam findings, there is no indication for further emergent testing or inpatient evaluation. I discussed with the patient/guardian the need to see the cleater for further evaluation of the symptoms. ED course: Pt has appt with Dr. Charles today, wants to go home, feels much better. CT PE neg. . 03/01 00:16 Order name: Basic Metabolic Panel; Complete Time: : rn 03/01 00:16 Order name: CBC with Diff; Complete Time: : rn 03/01 00:16 Order name: Magnesium; Complete Time: : rn 03/01 00:16 Order name: NT PRO-BNP; Complete Time: : rn 03/01 00:16 Order name: PT-INR; Complete Time: : rn 03/01 00:16 Order name: Troponin HS; Complete Time: : rn 03/01 00:16 Order name: XRAY Chest (1 view) rn 03/01 00:16 Order name: EKG; Complete Time: 00:17 rn 03/01 00:16 Order name: Cardiac monitoring; Complete Time: 00:41 rn 03/01 00:29 Order name: Extremity Venous Uni Ltd US rn 03/01 01:23 Order name: CT Chest For PE Angio rn 03/01 00:16 Order name: EKG - Nurse/Tech; Complete Time: 00: rn 03/01 00:16 Order name: IV Saline Lock; Complete Time: 00: rn 03/01 00:16 Order name: Labs collected and sent; Complete Time: 00: rn 03/01 00:16 Order name: O2 Per Protocol; Complete Time: rn 03/01 00:16 Order name: O2 Sat Monitoring; Complete Time: 00: rn EC:20 Rate is 115 beats/min. Rhythm is irregularly irregular. QRS [place] is Normal. VA interval rn is normal. QRS interval is normal. QT interval is normal. No Q waves. T waves are Normal. No ST changes noted. Clinical impression: Atrial Fibrillation. Interpreted by me. Reviewed by me. Administered Medications: 01:23 CANCELLED (Duplicate Order): Metoprolol TARTRATE 50 mg PO once rn 01:31 Drug: hydrALAZINE 5 mg Route: IVP; Site: right antecubital; kd3 05:51 Follow up: Response: No adverse reaction; Blood pressure is lowered kd3 01:31 Drug: Lasix (furosemide) 40 mg Route: IVP; Site: right antecubital; kd3 05:51 Follow up: Response: No adverse reaction kd3 Disposition Summary: 03/01/22 05:42 Discharge Ordered Location: Home rn Problem: new rn Symptoms: have improved rn Condition: Stable rn Diagnosis - Unspecified combined systolic (congestive) and diastolic (congestive) heart failure rn - Persistent atrial fibrillation rn - Pulmonary edema rn - Pleural effusion, not elsewhere classified rn Followup: rn - With: Private Physician - When: As needed - Reason: Recheck today's complaints, Re-evaluation by your physician Discharge Instructions: - Discharge Summary Sheet rn - Atrial Fibrillation rn - Heart Failure, Diagnosis rn - Pleural Effusion rn Forms: - Medication Reconciliation Form rn - Thank You Letter rn - Antibiotic rn residential - Prescription Opioid Use rn Signatures: Dispatcher [employer] EDAdarsh Rodriguez MD MD rn Baxter, Heather, RN RN hb Doucette, Kyli, RN RN kd3 Corrections: (The following items were deleted from the chart) 01:23 01:19 Metoprolol TARTRATE 50 mg PO once ordered. rn rn
--- NOTE | 2022-03-01 07:20 | EKG ---
Test Date: 2022-03-01 Test Time: 00:29:42 Air Carrier Operations Inspector: ERWIN MEASUREMENT RESULTS: Intervals: Rate: 115 MI: QRSD: 102 QT: 354 QTc: 489 [place]: P: MI: QRS: 60 T: 15 INTERPRETIVE STATEMENTS: Atrial fibrillation with rapid ventricular response Abnormal ECG Compared to ECG 02/11/2022 23:01:13 Ventricular premature complex(es) no longer present Electronically Signed On 03-01-22 07:20:22 CDT by Yasmani Charles
[2022-03-01 07:21] VITALS: TEMP 97.4
[2022-03-01 07:27] VITALS: BP 129/88; O2SAT 100
--- NOTE | 2022-03-01 12:16 | RAD REPORT ---
EXAM DESCRIPTION: XR CHEST 1 VIEW CLINICAL HISTORY: Palpitations COMPARISON: 02/11/2022. TECHNIQUE: XR CHEST 1 VIEW 03/01/2022 1:53 AM CDT FINDINGS: The heart is enlarged. There are mild interstitial changes throughout both lungs. There is no pleural effusion. There is no pneumothorax. There are no acute osseous findings. IMPRESSION: Improved aeration of the lungs. Electronically signed by: Goldy Emery MD 03/01/2022 3:31 AM CDT Due to temporary technical issues with the PACS/Fluency reporting system, reports are being signed by the in house radiologists without review as a courtesy to insure prompt reporting. The interpreting radiologist is fully responsible for the content of the report.
--- NOTE | 2022-03-01 12:17 | RAD REPORT ---
EXAM DESCRIPTION: Extremity Venous Uni Ltd 03/01/2022 4:06 AM CDT CLINICAL HISTORY: 47 years, Male, SWELLING Extremity Venous Uni Ltd COMPARISON: 02/08/2022 FINDINGS: Multiple grayscale images as well as duplex Doppler ultrasound (color and spectral analysi s) of the right lower extremity were performed. Right common femoral vein, right superficial femoral vein, right popliteal vein, right posterior tibi al vein at the level of the calf and ankle were imaged. Spectral waveform demonstrate normal compre ssibility, phasicity and augmentation. No intraluminal defects were seen. IMPRESSION: No sonographic evidence of right lower extremity DVT. Electronically signed by: Marvin Rangel MD 03/01/2022 4:07 AM CDT Due to temporary technical issues with the PACS/Fluency reporting system, reports are being signed by the in house radiologists without review as a courtesy to insure prompt reporting. The interpreting radiologist is fully responsible for the content of the report.
--- NOTE | 2022-03-01 12:36 | RAD REPORT ---
EXAM DESCRIPTION: CT chest angiography with intravenous contrast CLINICAL HISTORY: 47 years Male TO R/O PE, SOB, HX OF PE. TECHNIQUE: Following the administration of intravenous contrast, multiple high-resolution axial imag es of the chest were performed followed by sagittal and coronal reconstructed images. Coronal oblique MIP images were also performed. The CT study is performed according to ALARA (as low as reasonably a chievable) or ALARA/IMAGE GENTLY, with automatic adjustment of mA and/or kV according to patient size . Performed on: 03/01/2022 at 3:01 AM COMPARISON: CTA chest performed on 02/08/2022 FINDINGS: There is satisfactory visualization and contrast opacification of pulmonary arteries. No definite intra-arterial filling defects are identified to suggest acute or chronic pulmonary embolis m. The thoracic aorta is normal in caliber and contour without evidence of aneurysm or dissection. In cidentally noted, the left vertebral artery arises directly from the aortic arch, a normal developmen bryanna variant. Lungs are well-expanded. There are decreasing groundglass opacities bilaterally when compared to the prior study. There are mild residual patchy groundglass opacities best appreciated in the upper lobes bilaterally right greater than left. Findings suggest resolving multifocal pneumonia or potentially resolving edema. There are trace residual bilateral pleural effusions which have also decreased in si ze when compared to the prior study. There is no evidence of a pneumothorax. The central airways are patent and are unremarkable. The heart is normal in size. There is no pericardial effusion. There is no reflux of contrast into th e hepatic veins to suggest right heart strain.The RV/LV ratio is within normal limits. No pathologic appearing lymphadenopathy is identified. There are grossly stable small nonspecific med iastinal lymph nodes. No acute osseous abnormality is identified. There is mild degenerative spondylosis along the thoracic spine. The visualized upper abdominal structures are unremarkable. The thyroid gland is normal in size and configuration. IMPRESSION: 1. No evidence of acute or chronic pulmonary embolism, aortic aneurysm or aortic disse ction. 2. Decreasing groundglass opacities bilaterally when compared to the prior study. There are mild re sidual patchy groundglass opacities best appreciated in the upper lobes bilaterally, right greater th an left. Findings suggest resolving multifocal pneumonia or potentially resolving edema. 3. Trace residual bilateral pleural effusions which have also decreased in size when compared to th e prior study. 4. Grossly stable small nonspecific mediastinal lymph nodes. Electronically signed by: Gisella Morejon DO 03/01/2022 5:15 AM CDT Due to temporary technical issues with the PACS/Fluency reporting system, reports are being signed by the in house radiologists without review as a courtesy to insure prompt reporting. The interpreting radiologist is fully responsible for the content of the report.
--- OUTSIDE RECORDS SUMMARY | 2022-03-02 14:57 | XMS REPORT | Continuity of Care Document ---
:1975 Author Organization [facility] t Address [address] [place] [address] Care Team Providers Name Role Phone Only, Test Attending Clinician Unavailable John HA Attending Clinician JOHN Attending Clinician Unavailable Doctor Unassigned, Name Attending Clinician Unavailable Lab, Fam Pob I Attending Clinician Unavailable Anene DEPARTMENT STORE MANAGER Attending Clinician ALEX Attending Clinician Unavailable Millicent HA, H Attending Clinician Perla PA-C Attending Clinician PERLA Attending Clinician Unavailable CHANDLER Attending Clinician Unavailable Payers Payer Name Policy Type Policy Number Effective Date Expiration Date S ource Problems This patient has no known problems. Allergies, Adverse Reactions, Alerts Allergy Allergy Status Severity Reaction(s) Onset Inactive Treating Comm ents Source Name Type Date Date Clinician NO KNOWN Drug Active Univers ALLERGIE Class ity of [facility] Social History Social Habit Start Date Stop Date Quantity Comments Source Exposure to Not sure [facility] SARS-CoV-2 (event) Medica l Branch Sex Assigned At [birth year] [facility] 00:00:00 00:00:00 Smoking Status Start Date Stop Date Source Tobacco smoking consumption unknown [facility] Medications This patient has no known medications. Procedures Procedure Date / Time Performed Performing Clinician Sour e ASSIGNMENT OF BENEFITS 2020-09-17 21:09:34 Doctor Unassigned, No [facility] Plan of Care Planned Activity Planned Date Details Comments Source Future Scheduled 2021-06-16 [facility] 05:28:35 (1) [code = COVID-19 VACCINE (1)] Future Scheduled 2021-06-16 INFLUENZA VACCINE Method [facility] Test 05:28:35 [code = INFLUENZA VACCINE] Encounters Start End Encounter Admission Attending Care Care Encounter Source Date/Time Date/Time Type Type Clinicians Facility Department ID 2020-09-17 2020-09-17 Laboratory Only, Adc [facility] 1.2.840. [id number] Univers 15:09:07 15:24:07 Only Rosie Mcnulty [id number] ity of [place] [id number] [place] [facility] [phone] [facility] [address] 2020-09-17 2020-09-17 Outpatient R [facility] [id number] Univers 14:45:00 14:45:00 [id number] ity of [facility] 2020-09-17 2020-09-17 [facility] [id number] Univers 14:45:00 14:45:00 ROSIE ity [facility] 2020-09-17 2020-09-17 Orders Doctor DEL REAL 1.2.840.114 [id number] Univers 00:00:00 00:00:00 Only LingssCHAUNCEY carmen [id number] ity of [facility] [id number] Daniel as [phone] [facility] [address] 2020-09-07 2020-09-07 Laboratory Lab, Adc Fam Pob I [facility] 1.2. 840.114 [id number] Univers 08:37:07 08:56:20 Only Linda Lindsey [id number] ity of [place] [id number] Daniel as Professio [phone] [address] Office [address] 2020-09-07 2020-09-07 Outpatient R [facility] [id number] Univers 08:40:00 08:40:00 [id number] ity of [facility] 2020-09-07 2020-09-07 Outpatient R ALEX [facility] [id number] Univers 08:40:00 08:40:00 LINDA ity of [facility] 2020-08-24 2020-08-24 NASIMA Quiles 1.2.840.114 [id number] Univers 00:00:00 00:00:00 (Out) Toby GROSSMAN [id number] i ty of [facility] [id number] Daniel as [phone] [address] 2020-08-20 2020-08-20 Laboratory Lab, Adc Fam Pob I [facility] 1.2. 840.114 [id number] Univers 17:46:27 18:06:27 Only Nasima Duncan [id number] ity of [place] [id number] Daniel as Professio [phone] [address] 2020-08-20 2020-08-20 Outpatient R PERLA [facility] [id number] [facility] 17:50:00 17:50:00 NASIMA robertson [facility] 2020-08-20 2020-08-20 Letter Doctor NASIMA 1.2.840.114 [id number] Univers 00:00:00 00:00:00 (Out) Unassigned, CHAUNCEY [id number] ity of [place] [facility] [id number] Daniel as [phone] [address] 2020-03-29 2020-03-29 Outpatient [facility] [id number] [place] 00:00:00 00:00:[address] Results This patient has no known results.
== END 2022-03-01 05:51 | disposition home or self-care (01) ==
LOC: ER 23:48
DX: I50.40 Unspecified combined systolic (congestive) and diastolic (congestive) heart failure (principal); I48.19 Other persistent atrial fibrillation; J90 Pleural effusion, not elsewhere classified; Z79.01 Long term (current) use of anticoagulants; Z86.711 Personal history of pulmonary embolism
CPT/HCPCS: 93005; 85025; 80048; 36415; 83735; 85610; 84484; 83880; 71275; 71045; 93971; Q9967; J0360; J1940

== ENCOUNTER 2022-03-09 06:40 | Day surgery (SDC) | payer BC ==
[2022-03-08 10:28] LABS: SARS-CoV-2 Antigen Rapid Res Negative (Negative)
[2022-03-09] MEDS ORDERED: MIDAZOLAM HCL 20 ML ONE (06:42)
[2022-03-09] MEDS ORDERED: METOPROLOL TARTRATE 5 MG/5 ML INJ IV ONE (06:42)
[2022-03-09] MEDS ORDERED: ATROPINE SULF 1 MG/10 ML SYR IV ONE (06:43)
[2022-03-09] MEDS ORDERED: FLUMAZENIL 0.1 MG/ML (5 mL VIAL) IV ONE (06:43)
[2022-03-09 07:18] VITALS: O2SAT 95
[2022-03-09] MEDS ORDERED: NA CHLORIDE 0.9% 500 ML ONE (07:32)
[2022-03-09] MEDS ORDERED: MIDAZOLAM HCL 2 MG/2 ML INJ ONE (07:48)
[2022-03-09 09:11] VITALS: BP 127/83
--- NOTE | 2022-03-12 06:54 | OP ---
Surgeon: Yasmani Charles MD Grader Meat: Ms. Diane Santoyo. Procedure: Direct current cardioversion. 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 Mr. Shepherd is 47. We tried cardiovert him on metoprolol and that did not work. I put him on amiodarone 400 mg 1 p.o. b.i.d. dose and then brought him back to the pathology laboratory aide for possible cardioversion. He received 22 mg of Versed. He recei anibal 1 dose of 200, two doses of 360 joules and they failed to convert. We will continue his present regimen. He can go home when he wakes up. He will need to see for an ablation in the near future. A sleep study was recommended. He was also recommended to cut down on his alcohol int april. The patient tolerated the procedure well. There were no complications. Final Diagnosis: Failed cardioversion from atrial fibrillation. He will go home when he wakes up. I will make arrangements for outpatient followup. ZITA/FAUSTINA Voice ID: [id number] Report ID: [id number]
== END 2022-03-09 09:11 | disposition home or self-care (01) ==
LOC: CCL 06:40
DX: I48.0 Paroxysmal atrial fibrillation (principal); I10 Essential (primary) hypertension; Z79.01 Long term (current) use of anticoagulants; Z20.822 Contact with and (suspected) exposure to COVID-19
CPT/HCPCS: 36415; 92960; 87811; J2250 ×2; J7040